=== PATIENT | female | born 1945 | race Caucasian/White ===

== ENCOUNTER 2016-12-11 16:46 | Emergency (ER) | payer MEDICARE, BC ==
--- NOTE | 2016-12-11 18:26 | ERNOTE ---
Lower Extremity HPI - Narrative Date of Service: 12/11/16 - General Lower Extremities Pain: ankle: right Time Seen by Provider: 12/11/16 17:15 Source: patient Exam Limitations: no limitations - Immun/Allergies/Home Medications Allergies/Adverse Reactions: Allergies Allergy/AdvReac Type Severity Reaction Status Date / Time ciprofloxacin [From Cipro] AdvReac Mild Nausea Verified 12/11/16 17:07 ciprofloxacin HCl AdvReac Mild Nausea Verified 12/11/16 17:07 [From Cipro] codeine AdvReac Mild GI PAIN Verified 12/11/16 17:07 Home Medications: HOME MEDICATIONS Amitriptyline HCl [Amitriptyline (Elavil)] 25 mg PO HS 06/15/14 [Last Taken Unknown] Aspirin 325 mg PO DAILY 06/15/14 [Last Taken Unknown] Atorvastatin Calcium [Lipitor] 40 mg PO DAILY 06/15/14 [Last Taken Unknown] Calcium Carbonate [Tums] 500 mg PO TID 06/15/14 [Last Taken Unknown] LORazepam [Ativan] 1 mg PO TID PRN 06/15/14 [Last Taken Unknown] Benazepril HCl [Lotensin] 20 mg PO BID 07/11/15 [Last Taken Unknown] Esomeprazole Magnesium [Nexium] 40 mg PO DAILY PRN 07/11/15 [Last Taken Unknown] Furosemide [Lasix] 40 mg PO DAILY 07/11/15 [Last Taken Unknown] Promethazine HCl 25 mg PO QID 07/11/15 [Last Taken Unknown] Hydrocodone/Acetaminophen [Tram 5-325 Tablet] 1 tab PO Q6H PRN #20 tab [Last Taken Unknown] - History of Present Illness Narrative: Patient presents to the ED for a right ankle injury. This happened just [employer]. Lateral right ankle pain and swelling. She stood up and caught her foot on the claw foot of furniture turning her ankle. She fell but denies other injuries. No head injury. No neck pain. No knee or hip pain. She cannot bear weight. Pain worse with movement. Denies other injuries. Occurred: just prior to arrival Location of Incident: home Method of Injury: Reports: twisted Reason for Fall: Reports: other - tripped Loss of Consciousness: Reports: no loss of consciousness Modifying Factors - (Improves): Reports: rest Modifying Factors - (Worsens): Reports: movement Associated Symptoms: Reports: unable to bear weight. Denies: weakness, sensory loss Other Injuries: Reports: none Prior Treament: Denies: recently seen Review of Systems - Review of Systems Constitutional: Absent: fever ENT: Present: other - no head injury Respiratory: Absent: shortness of breath Cardiology: Absent: chest pain Gastrointestinal/Abdominal: Absent: abdominal pain Musculoskeletal: Present: See HPI Skin: Present: other - no laceration Neurological: Present: other - denies acute focal N/T/W. - Patient's Past Medical History Patient History - Medical: GERD Patient History - Cardiac/Respiratory: Coronary Heart Disease, Hypertension, Hyperlipidemia, Myocardial Infarction Patient History - Cancer: Thyroid, Surgical Treatment Patient History - Surgical Procedures: Cancer Surgery, Cholecystectomy, Colonoscopy, Hysterectomy, Other Patient History - Other: None - Social History Living Situations: spouse Smoking Status: Never smoker Have you smoked in the past 12 months: No Alcohol Use: none Drug Use: other Physical Exam - Physical Exam General Appearance: Present: alert, no apparent distress Eye Exam: Normal inspection: bilateral, PERRL: bilateral Ears, Nose, Throat: Present: normal ENT inspection Neck: Present: other - no tenderness posterior cervical spine. Respiratory: Present: no respiratory distress, normal breath sounds Cardiovascular/Chest: Present: regular rate, rhythm, normal peripheral pulses Peripheral Pulses: N=norm/S=strong/W=weak/B=bound/A=absent: Dorsalis-pedis (R): Normal Gastrointestinal/Abdominal: Present: normal bowel sounds, nontender, soft Back Exam: Present: no vertebral tenderness Extremity Exam: Present: other - Right hip and right knee non-tender. Right ankle with lateral ankle swelling. Also tendenress here. Difficult exam d/t pain and swelling. No clear Achilles tendon injury. no foot tenderness. No gross instability but given pain cannot stress test the ankle joint. Strong DP pulse. No laceration. Neurological Exam: Present: other - sensation to LT intact. Wiggles toes. No clear acute focal motor deficits. Skin Exam: Present: other - no lacewration ED Progress - Vital Signs Patient's Vital Signs:: I have reviewed the patient's vital signs. Vital Signs: Vital Signs 12/11/16 17:04 Temperature 36.1 C L Pulse Rate 70 Respiratory 14 Rate Blood Pressure 122/88 O2 Sat by Pulse 98 Oximetry - X-Ray X-Ray #1 X-Ray: ankle X-ray Comments: I reviewed the formal radiology report. - Progress/Reassessment Chief Complaint: Ankle Injury/ Pain Progress Note-Subjective: 12/11/16 18:21 i discussed the case with Dr Alvarez. He recommends Stirrup and foot plate splint which by protocol is placed by nursing staff here. This was placed by nursing staff. Pt has crutches at home and I stressed no weight bearing. She is to see Dr Alvarez Thursday for an appointment. I discussed warning signs and reasons to return as well as the need for close f/u. Departure Clinical Impression: Fracture of distal end of fibula - Departure Disposition: Home self-care Condition: Stable Instructions: Fibular Ankle Fracture Treated With or Without Immobilization, Adult Additional Instructions: Call Dr Alvarez in the morning for an appointment time on Thursday. Leave splint in place until that time. Rest. Ice. Elevation. No weight bearing. Crutches. No driving with pain medications. Take a stool softener while taking pain medications. Return here for increased pain, numbness, tingling, weakness or if your condition worsens or changes in any way. Referrals: Conchis Coker MD [Primary Care Provider] - Prescriptions: Hydrocodone/Acetaminophen [Tram 5-325 Tablet] 1 tab PO Q6H PRN #20 tab PRN Reason: Pain
[2016-12-11 18:59] VITALS: BP 133/72
== END 2016-12-11 18:48 | disposition home or self-care (01) ==
LOC: ER 16:46
PROC: 2W3QX1Z Immobilization of Right Lower Leg using Splint (ICD-10-PCS; principal; 2016-12-11)
DX: S82.491A Other fracture of shaft of right fibula, initial encounter for closed fracture (principal); W22.03XA Walked into furniture, initial encounter; Y92.009 Unspecified place in unspecified non-institutional (private) residence as the place of occurrence of the external cause; Z85.850 Personal history of malignant neoplasm of thyroid

== ENCOUNTER 2017-07-27 09:31 | Emergency (ER) | payer MEDICARE, BC ==
[2017-07-27 09:55] LABS: Hematocrit 36.4 % (37.0-47.0); Hemoglobin 12.2 gm/dL (12.5-16.0); Mean Corpuscular Hemoglobin 32.2 pg (27-31); Mean Corpuscular Hgb Conc 33.5 g/dl (32-36); Mean Platelet Volume 11.3 fl (6.0-9.5); Neutrophil # 2.3 K/mm3 (1.3-6.0); Platelet Count 146 K/mm3 (150-450); Red Blood Count 3.79 M/mm3 (4.2-5.4); Red Cell Distribution Width 13.5 % (11.5-14.0); White Blood Count 4.7 K/mm3 (4.0-10.5)
[2017-07-27 10:05] LABS: Prothrombin Time (Patient) 10.6 Seconds (9.4-11.4)
[2017-07-27] MEDS ORDERED: MAG HYDROX/ALUMINUM HYD/SIMETH 30 ML UDC PO ONE (10:06)
[2017-07-27] MEDS ORDERED: BELLADONNA ALKALOIDS/PHENOBARB 60 ML BTL PO ONE (10:06)
[2017-07-27 10:12] LABS: INR 1.02 INR (0.90-1.10); Partial Thrombolplastin Time 24.7 Seconds (24-32); Troponin I Less than 0.017 ng/ml (0.00-0.10)
--- NOTE | 2017-07-27 10:12 | ERNOTE ---
Chest Pain/Cardiac HPI Chief Complaint: Chest Pain Time Seen by Provider: 07/27/17 10:04 Source: patient, family Exam Limitations: no limitations Immunizations: IMMUNIZATION HX Immunizations Up to Date Yes History of Influenza Vaccine Yes Hx Pneumococcal Vaccination No Allergies/Adverse Reactions: Allergies ciprofloxacin [From Cipro] Adverse Reaction (Mild, Verified 07/27/17 10:05) Nausea ciprofloxacin HCl [From Cipro] Adverse Reaction (Mild, Verified 07/27/17 10:05) Nausea codeine Adverse Reaction (Mild, Verified 07/27/17 10:05) GI PAIN Home Medications: HOME MEDICATIONS Amitriptyline HCl [Amitriptyline (Elavil)] 25 mg PO HS 06/15/14 [Last Taken Unknown] Atorvastatin Calcium [Lipitor] 40 mg PO DAILY 06/15/14 [Last Taken Unknown] LORazepam [Ativan] 1 mg PO TID PRN 06/15/14 [Last Taken Unknown] Benazepril HCl [Lotensin] 20 mg PO BID 07/11/15 [Last Taken Unknown] Esomeprazole Magnesium [Nexium] 40 mg PO DAILY PRN 07/11/15 [Last Taken Unknown] Furosemide [Lasix] 40 mg PO DAILY 07/11/15 [Last Taken Unknown] Aspirin [Ecotrin] 325 mg PO DAILY 07/27/17 [Last Taken 07/26/17] Carvedilol [Coreg] 6.25 mg PO BID 07/27/17 [Last Taken Unknown] Omeprazole [Prilosec] 20 mg PO DAILY #30 cap 07/27/17 [Last Taken Unknown] Omeprazole [Prilosec] 20 mg PO DAILY #30 cap 07/27/17 [Last Taken Unknown] Narrative: Patient has a three-year history of epigastric abdominal pain. She has undergone numerous stress test all of which are negative. Patient appears to have a vague EGD scheduled for sometime in the future however she is having difficulty getting through to the physician's in [place]. She states she would prefer to have the EGD done here him and would appreciate some assistance in getting that done. Timing: intermittent Severity/Quality: mild, burning Location: epigastric Chest Pain Radiation: no radiation Activities at Onset: none Modifying Factors - Improves: Present: antacids Associated Symptoms: Present: denies symptoms Prior Chest Pain/Cardiac Workup: Reports: stress test Prior Treatment: Reports: recently seen, treated by physician Review of Systems - Review of Systems Constitutional: Present: See HPI EYE: Present: no symptoms reported ENT: Present: no symptoms reported Respiratory: Present: no symptoms reported Cardiology: Present: no symptoms reported Gastrointestinal/Abdominal: Present: See HPI, abdominal pain - chronic epigastric Genitourinary: Present: no symptoms reported Musculoskeletal: Present: no symptoms reported Skin: Present: no symptoms reported Neurological: Present: no symptoms reported Endocrine: Present: no symptoms reported Hematologic/Lymphatic: Present: no symptoms reported Psych: Present: no symptoms reported - Patient's Past Medical History Patient History - Medical: GERD Patient History - Cardiac/Respiratory: Coronary Heart Disease, Hypertension, Hyperlipidemia, Myocardial Infarction Patient History - Cancer: Thyroid, Surgical Treatment Patient History - Surgical Procedures: Cancer Surgery, Cholecystectomy, Colonoscopy, Hysterectomy, Other Patient History - Other: None - Family History Father Family History - Medical: Family History - Cardiac/Respiratory: Myocardial Infarction Family History - Cancer: Lung Mother Family History - Medical: - Social History Living Situations: spouse Abuse History: No History of abuse Psych History: Hx of Anxiety, Hx of Depression Smoking Status: Current every day smoker Have you smoked in the past 12 months: Yes Do you dip or chew tobacco: No Alcohol Use: none Drug Use: other - Immunizations Immunizations Up to Date: Yes Hx Pneumococcal Vaccination: No History of Influenza Vaccine: Yes Physical Exam - Physical Exam General Appearance: Present: wd/wn, alert, mild distress Head Exam: Present: normal inspection Eye Exam: Normal inspection: bilateral, PERRL: bilateral Ears, Nose, Throat: Present: normal ENT inspection, H, normal pharynx Neck: Present: normal inspection, nontender Respiratory: Present: no respiratory distress, normal breath sounds, no accessory muscle use, chest nontender, lungs clear Cardiovascular/Chest: Present: regular rate, rhythm, no murmur, normal peripheral pulses Gastrointestinal/Abdominal: Present: normal bowel sounds, nondistended, soft, no organomegaly, tenderness - the epigastric region Rectal Exam: Present: deferred Back Exam: Present: normal inspection, normal range of motion Extremity Exam: Present: normal inspection, non-tender, no edema, normal range of motion Neurological Exam: Present: alert, oriented, normal mood/affect Skin Exam: Present: normal color, warm/dry Lymphatic Exam: Present: no adenopathy ED Progress - Results and Orders Patient's Lab Results:: I have reviewed the patient's lab results. - Vital Signs Patient's Vital Signs:: I have reviewed the patient's vital signs. Vital Signs: Vital Signs 07/27/17 07/27/17 09:45 10:02 Temperature 36.4 C L 36.4 C L Pulse Rate 69 81 Respiratory 14 20 Rate Blood Pressure 114/61 161/70 O2 Sat by Pulse 99 99 Oximetry - EKG EKG: NSR, premature ventricular contraction EKG read: Interp. by me - X-Ray X-Ray #1 X-Ray: chest Interpretation: Reviewed by me - Progress/Reassessment Chief Complaint: Chest Pain Progress:: Improved Plan - Plan Plan: Patient had complete resolution of her epigastric pain after GI cocktail. I discussed the case with Dr. Causey, her local surgeons, he is agreed to do the EGD here and the patient is grateful for not having to drive to [place] to have the test. Patient will be referred to Dr. Causey and ultimately referred back to her family physician Dr. Coker. This episode of pain as been ongoing for 24 hours with an unremarkable EKG and a negative troponin and at this juncture I do not anticipate that this is acute coronary syndrome. Departure - Departure Clinical Impression: GERD (gastroesophageal reflux disease) Qualifiers: Esophagitis presence: with esophagitis Qualified Code(s): K21.0 - Gastro- esophageal reflux disease with esophagitis Disposition: Home self-care Condition: Good Instructions: Indigestion, [id number] Additional Instructions: Call Dr. Causey for appointment Referrals: Conchis Coker MD [Primary Care Provider] - Alexx Causey MD [Associate] - Prescriptions: Omeprazole [Prilosec] 20 mg PO DAILY #30 cap
[2017-07-27 10:15] LABS: ALT 17 U/L (19-67); AST 16 U/L (0-48); Albumin * 3.6 gm/dl (3.4-5.0); Alkaline Phosphatase * 86 U/L (50-170); Anion Gap 11.4 mmol/L (6.8-13.8); BUN/Creatinine Ratio 22.8 (9.0-21.6); Bilirubin, Total 0.7 mg/dL (0.0-1.1); Blood Urea Nitrogen 13 mg/dL (3-23); Ca. Corrected For Albumin 9.2 mg/dL (8.4-10.2); Calcium * 9.2 mg/dL (7.9-10.9); Carbon Dioxide 28.4 mmol/L (24-32.6); Chloride 104 mmol/L (97-106); Glucose * 117 mg/dL (70-110); Potassium 3.8 mmol/L (3.4-4.6); Sodium 140 mmol/L (132-142)
[2017-07-27] MEDS: LIDOCAINE HCL 20 ML UDC PO ONE ×2 (10:17→10:18)
[2017-07-27 10:50] VITALS: BP 113/58
== END 2017-07-27 10:54 | disposition home or self-care (01) ==
LOC: ER 09:31
DX: K21.0 Gastro-esophageal reflux disease with esophagitis (principal); I10 Essential (primary) hypertension; E78.5 Hyperlipidemia, unspecified; I50.9 Heart failure, unspecified; I25.2 Old myocardial infarction; Z85.850 Personal history of malignant neoplasm of thyroid; F17.200 Nicotine dependence, unspecified, uncomplicated

== ENCOUNTER 2017-08-04 10:28 | Day surgery (SDC) | payer MEDICARE, BC ==
[~2017-08-04 10:28] MED LIST: RINGER'S SOLUTION,LACTATED 1,000 ML IV PRN
[2017-08-04] MEDS ORDERED: RINGER'S SOLUTION,LACTATED 1,000 ML IV ONE (11:45)
--- NOTE | 2017-08-04 12:06 | OR ---
Operative Report - Dictated Report Narrative: Date: 08/04/2017 Preop dx: GERD Postop dx: Bile reflux. Small hiatal hernia. Procedure: Esophagogastroduodenoscopy with biopsy x 2 Surgeon: Alexx Causey MD Anesthesia: MAC per FOAM RUBBER CURER EBL: minimal Specimen: CLOtest, antral biopsy Description: After informed consent a bite block was inserted and IV sedation was administered per FOAM RUBBER CURER. Flexible video endoscope was inserted through the bite block, through the posterior pharynx and into the esophagus under direct vision. The scope was then advanced through the esophagus, stomach, and into the duodenum. The duodenum was grossly normal without ulceration. The scope was withdrawn into the stomach. There was no gastritis or ulcers noted. The body of the stomach was inspected and was normal. A biopsy of the antrum for CLOtest and anatomic pathology were obtained. Retroflexion of the scope within the stomach revealed a small hiatal hernia. Endoscope was withdrawn into the distal esophagus. No abnormalities were seen. Remainder of the esophagus was unremarkable. The patient tolerated the procedure well and was discharged from the endoscopy suite in stable condition. RECOMMENDATIONS: Continue acid suppression. Repeat EGD will be PRN.
[2017-08-04 13:33] VITALS: BP 136/71
== END 2017-08-04 10:29 | disposition home or self-care (01) ==
LOC: AMB 10:28
PROVIDERS: ATTEND Specialist
PROC: 0DB68ZX Excision of Stomach, Via Natural or Artificial Opening Endoscopic, Diagnostic (ICD-10-PCS; principal; 2017-08-04 11:50)
DX: K21.9 Gastro-esophageal reflux disease without esophagitis (principal); K29.70 Gastritis, unspecified, without bleeding; K44.9 Diaphragmatic hernia without obstruction or gangrene; I10 Essential (primary) hypertension; E78.5 Hyperlipidemia, unspecified; R73.01 Impaired fasting glucose; I25.10 Atherosclerotic heart disease of native coronary artery without angina pectoris; F41.9 Anxiety disorder, unspecified; F32.9 Major depressive disorder, single episode, unspecified; F17.210 Nicotine dependence, cigarettes, uncomplicated; Z68.31 Body mass index [BMI] 31.0-31.9, adult

== ENCOUNTER 2017-09-21 08:11 | Emergency (ER) | payer MEDICARE, BC ==
[2017-09-21 08:48] LABS: Hematocrit 39.7 % (37.0-47.0); Mean Cell Volume 97.5 fl (78-100); Mean Corpuscular Hemoglobin 31.9 pg (27-31); Mean Corpuscular Hgb Conc 32.7 g/dl (32-36); Mean Platelet Volume 11.1 fl (6.0-9.5); Neutrophil # 7.6 K/mm3 (1.3-6.0); Neutrophil % 70.8 % (42-75.0); Platelet Count 167 K/mm3 (150-450); Red Blood Count 4.07 M/mm3 (4.2-5.4); Red Cell Distribution Width 13.3 % (11.5-14.0); White Blood Count 10.7 K/mm3 (4.0-10.5)
[2017-09-21 08:52] LABS: Urine Bilirubin Negative (NEGATIVE); Urine Blood 50 /ul (NEGATIVE); Urine Ketone Negative (NEGATIVE); Urine Nitrite Negative (NEGATIVE); Urine Protein Negative (NEGATIVE); Urine Specific Gravity 1.025 SP.GR. (1.005-1.010); Urine Urobilinogen Normal (NORMAL)
--- NOTE | 2017-09-21 08:58 | ERNOTE ---
Dizziness ER Record Presenting Symptoms: dizziness Time Seen by Provider: 09/21/17 08:23 Source: patient Exam Limitations: no limitations Immunizations: IMMUNIZATION HX Immunizations Up to Date Yes History of Influenza Vaccine Yes Hx Pneumococcal Vaccination Yes Allergies/Adverse Reactions: Allergies Allergy/AdvReac Type Severity Reaction Status Date / Time ciprofloxacin HCl AdvReac Mild Nausea Verified 09/21/17 08:17 [From Cipro] codeine AdvReac Mild GI PAIN Verified 09/21/17 08:17 Home Medications: HOME MEDICATIONS Amitriptyline HCl [Amitriptyline (Elavil)] 25 mg PO HS 06/15/14 [Last Taken Unknown] Atorvastatin Calcium [Lipitor] 40 mg PO DAILY 06/15/14 [Last Taken Unknown] LORazepam [Ativan] 1 mg PO TID PRN 06/15/14 [Last Taken 08/04/17 06:45] Benazepril HCl [Lotensin] 20 mg PO BID 07/11/15 [Last Taken 08/04/17 06:45] Esomeprazole Magnesium [Nexium] 40 mg PO DAILY PRN 07/11/15 [Last Taken Unknown] Furosemide [Lasix] 40 mg PO Q7D 07/11/15 [Last Taken Unknown] Aspirin [Ecotrin] 325 mg PO DAILY 07/27/17 [Last Taken 07/26/17] Carvedilol [Coreg] 6.25 mg PO BID 07/27/17 [Last Taken Unknown] Calcium Carbonate [Tums] 500 mg PO TID 07/28/17 [Last Taken Unknown] Promethazine HCl [Phenergan (Promethazine)] 25 mg PO Q4H PRN 07/28/17 [Last Taken Unknown] - History of Present Illness Narrative: Patient has had different changing symptoms for three days, she is rather vague in trying to describe what is going on. The last couple of days she has had intermittent headaches and 'buzzing' in her ears (left and right). She currently doesn't have a headache, buzzing only in the left ear, no hearing deficit. Since this morning she has been also feeling dizzy, not a spinning sensation. She is afraid of fainting but can't say if that is what she is feeling currently. She is nauseate but has been able to eat toast and take her meds this morning, no new deficit, no recent injury. Timing and Duration: gradual onset Associated Symptoms: Present: ringing/roaring in ear, nausea, headache. Absent : hearing loss, ear pain, vomiting, weakness, numbness, sweating, light headedness Sense of movement: Present: vague. Absent: spinning, falling Decreased ability to stand/walk:: Absent: weak, difficult, cannot walk Usually:: Present: walks w/o assistance Modifying Factors - (Improves): Reports: nothing Modifying Factors - (Worsens): Reports: nothing Prior Treament: Reports: similar symptoms before - when 'having bad nerves' Review of Systems - Review of Systems Constitutional: Absent: recent illness, fever EYE: Present: blurred vision - chronic left eye. Absent: vision changes ENT: Absent: nose congestion, sore throat Respiratory: Absent: shortness of breath Cardiology: Absent: chest pain, palpitations Gastrointestinal/Abdominal: Present: nausea. Absent: vomiting, diarrhea, abdominal pain Genitourinary: Present: no symptoms reported Musculoskeletal: Present: neck pain - left lateral muscle spasms. Absent: back pain Skin: Present: no symptoms reported Neurological: Present: See HPI, headache, dizziness/light-headedness. Absent: weakness, numbness Psych: Present: anxiety - Patient's Past Medical History Patient History - Medical: Anxiety, Depression, GERD, Other Patient History - Cardiac/Respiratory: Hypertension, Hyperlipidemia, Myocardial Infarction, Peripheral Vascular Disease Patient History - Cancer: Thyroid, Surgical Treatment Patient History - Surgical Procedures: Back Surgery, Cholecystectomy, Colonoscopy, Hysterectomy, Hernia Repair Patient History - Other: None - Family History Father Family History - Medical: , No pertinent hx Family History - Cardiac/Respiratory: Myocardial Infarction Family History - Cancer: Lung Mother Family History - Medical: , Renal Disease Family History - Cardiac/Respiratory: No pertinent hx Family History - Cancer: No pertinent family hx Brother Family History - Medical: No pertinent hx Family History - Cardiac/Respiratory: Coronary Heart Disease, Hypertension Family History - Cancer: No pertinent family hx - Social History Abuse History: No History of abuse Psych History: Hx of Anxiety, Hx of Depression Smoking Status: Current every day smoker Have you smoked in the past 12 months: Yes - Immunizations Immunizations Up to Date: Yes Hx Pneumococcal Vaccination: Yes History of Influenza Vaccine: Yes Physical Exam - Physical Exam General Appearance: Present: wd/wn, alert, no apparent distress, anxious Head Exam: Present: normal inspection, no evidence of injury Eye Exam: Normal inspection: right, PERRL: right, EOMI: bilateral, Other: left - chronic changes irregular dilated pupil Ears, Nose, Throat: Present: normal ENT inspection, normal pharynx Neck: Present: normal inspection, supple, full range of motion, tender lateral - left slight muscle spasms Respiratory: Present: no respiratory distress, normal breath sounds, no accessory muscle use, lungs clear Cardiovascular/Chest: Present: regular rate, rhythm, no murmur, normal peripheral pulses Gastrointestinal/Abdominal: Present: nontender, nondistended, soft Extremity Exam: Present: no edema Neurological Exam: Present: alert, oriented, normal mood/affect, no motor/ sensory deficits, conservation specialist II-XII nml as tested, normal cerebellar test - walking to bathroom steady gait Skin Exam: Present: normal color, warm/dry ED Progress - Results and Orders Patient's Lab Results:: I have reviewed the patient's lab results. - Vital Signs Patient's Vital Signs:: I have reviewed the patient's vital signs. Vital Signs: Vital Signs 09/21/17 08:14 Temperature 36.3 C L Pulse Rate 77 Respiratory 14 Rate Blood Pressure 139/71 O2 Sat by Pulse 99 Oximetry - EKG EKG: NSR, other - PVCs EKG read: Interp. 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
[2017-09-21 09:01] LABS: Anion Gap 11.2 mmol/L (6.8-13.8); BUN/Creatinine Ratio 22.7 (9.0-21.6); Bilirubin, Total 1.1 mg/dL (0.0-1.1); Ca. Corrected For Albumin 9.1 mg/dL (8.4-10.2); Calcium * 9.4 mg/dL (7.9-10.9); Carbon Dioxide 29.6 mmol/L (24-32.6); Potassium 3.8 mmol/L (3.4-4.6); Total Protein 7.4 gm/dL (6.2-8.2)
[2017-09-21 09:04] LABS: Urine Appearance Clear; Urine Bacteria None Seen; Urine Color Yellow; Urine Mucus Few - 1+; Urine WBC None Seen /hpf (0-5)
[2017-09-21 09:55] VITALS: BP 138/69
== END 2017-09-21 09:46 | disposition home or self-care (01) ==
LOC: ER 08:11
DX: F41.9 Anxiety disorder, unspecified (principal); Z85.850 Personal history of malignant neoplasm of thyroid; I25.2 Old myocardial infarction; F17.200 Nicotine dependence, unspecified, uncomplicated; I10 Essential (primary) hypertension; E78.5 Hyperlipidemia, unspecified; K21.9 Gastro-esophageal reflux disease without esophagitis

== ENCOUNTER 2018-10-26 09:02 | Inpatient (IN) | payer BC, MEDICARE ==
[2018-10-26 09:50] LABS: Hemoglobin 11.1 gm/dL (12.5-16.0); Mean Cell Volume 96.3 fl (78-100); Mean Corpuscular Hemoglobin 31.4 pg (27-31); Mean Corpuscular Hgb Conc 32.6 g/dl (32-36); Mean Platelet Volume 10.9 fl (8-12.5); Neutrophil # 11.9 K/mm3 (1.3-6.0); Neutrophil % 79.9 % (42-75.0); Platelet Count 165 K/mm3 (150-450); Red Blood Count 3.53 M/mm3 (4.2-5.4); Red Cell Distribution Width 13.4 % (11.5-14.0); White Blood Count 14.9 K/mm3 (4.0-10.5)
[2018-10-26 09:59] LABS: Prothrombin Time (Patient) 10.7 Seconds (9.0-11.0)
[2018-10-26 10:00] LABS: Urine Bilirubin 1 mg/dl (NEGATIVE); Urine Blood 250 /ul (NEGATIVE); Urine Ketone 15 mg/dL (NEGATIVE); Urine Nitrite Negative (NEGATIVE); Urine Protein Negative (NEGATIVE); Urine Specific Gravity 1.025 SP.GR. (1.005-1.010); Urine Urobilinogen Normal (NORMAL)
[2018-10-26 10:05] LABS: INR 1.07 INR (0.90-1.10); Partial Thrombolplastin Time 26.6 Seconds (24-32)
[2018-10-26 10:09] LABS: Troponin I Less than 0.017 ng/mL (0.00-0.10)
[2018-10-26 10:10] LABS: ALT 220 U/L (19-67); AST 94 U/L (0-48); Alkaline Phosphatase * 179 U/L (50-170); Anion Gap 14.4 mmol/L (6.8-13.8); BNP * 1645 pg/mL (5-550); BUN/Creatinine Ratio 18.6 (9.0-21.6); Bilirubin, Total 1.2 mg/dL (0.0-1.1); Blood Urea Nitrogen 11 mg/dL (3-23); Ca. Corrected For Albumin 9.3 mg/dL (8.4-10.2); Calcium * 8.8 mg/dL (7.9-10.9); Carbon Dioxide 26.9 mmol/L (24-32.6); Chloride 101 mmol/L (97-106); Glucose * 109 mg/dL (70-110); Potassium 3.3 mmol/L (3.4-4.6); Sodium 139 mmol/L (132-142); Total Protein 6.6 gm/dL (6.2-8.2)
[2018-10-26 10:10] LABS: Urine Appearance Slightly Cloudy (CLEAR); Urine Bacteria TRACE; Urine Color Dark Yellow; Urine RBC None Seen /hpf (0-5); Urine WBC None Seen /hpf (0-5)
[2018-10-26] MEDS ORDERED: NORMAL SALINE 1,000 ML IV ONE (10:18)
--- NOTE | 2018-10-26 10:29 | ERNOTE ---
Date of Service: 10/26/18 Time Seen by Provider: 10/26/18 10:12 Stated Complaint: uti Presenting Symptoms:: cough, other - lower abdominal pressure Source: patient, family, RN notes reviewed, past records Exam Limitations: no limitations Immunizations: IMMUNIZATION HX Immunizations Up to Date Yes History of Influenza Vaccine Yes Hx Pneumococcal Vaccination No Allergies/Adverse Reactions: Allergies ciprofloxacin HCl [From Cipro] Adverse Reaction (Mild, Verified 10/26/18 09:19) Nausea codeine Adverse Reaction (Mild, Verified 10/26/18 09:19) GI PAIN Home Medications: HOME MEDICATIONS Amitriptyline HCl [Amitriptyline (Elavil)] 25 mg PO HS 06/15/14 [Last Taken Unknown] Atorvastatin Calcium [Lipitor] 40 mg PO DAILY 06/15/14 [Last Taken Unknown] Benazepril HCl [Lotensin] 20 mg PO BID 07/11/15 [Last Taken 08/04/17 06:45] Esomeprazole Magnesium [Nexium] 40 mg PO DAILY PRN 07/11/15 [Last Taken Unknown] Furosemide [Lasix] 40 mg PO Q7D 07/11/15 [Last Taken Unknown] Carvedilol [Coreg] 6.25 mg PO BID 07/27/17 [Last Taken 10/25/18] Calcium Carbonate [Tums] 500 mg PO TID 07/28/17 [Last Taken Unknown] prochlorperazine maleate 10 mg tablet 10 mg PO Q6H PRN #30 tab MDD do not exceed 40mg/24hrs 05/18/18 [Last Taken 10/25/18] aspirin 81 mg tablet,delayed release 81 mg PO DAILY 07/06/18 [Last Taken 10/26/18] lorazepam 1 mg tablet 1 mg PO TID PRN #90 tab 10/19/18 [Last Taken Unknown] amoxicillin 875 mg-potassium clavulanate 125 mg tablet 1 tab PO BID 10 Days #20 tab 10/23/18 [Last Taken Unknown] benzonatate 200 mg capsule 200 mg PO TID PRN #15 cap 10/23/18 [Last Taken Unknown] prednisone 20 mg tablet 40 mg PO DAILY 5 Days #10 tab 10/23/18 [Last Taken Unknown] Nitrofurantoin Macrocrystal [Nitrofurantoin] 100 mg PO QID 10/26/18 [Last Taken 10/25/18] - History of Present Ilness Narrative: Nyla is a 73 year old female who presents to the ED from home with multiple complaints. She initially presented for pelvic pressure. She was seen in urology a week ago. A cath UA was done and she was started on Macrobid. She had also been having a cough which has been getting gradually worse. She was seen for this in the walk-in clinic 3 days ago. She was prescribed Augmentin and pred nisone. She only took one dose of prednisone because she did not like the way it made her feel. She has been taking the Augmentin despite it causing nausea and upset stomach. She also reports having some chest pain last week. Her oxygen saturation was 91% on room air during triage. She became more dyspneic while being taken to a room and dropped to 87%. She is currently 97% with oxygen at 2 liters via nasal canula. Timing: getting worse Frequency/Possible Cause: Reports: unknown cause Modifying Factors - Improves: Reports: nothing Modifying Factors - Worsens: Reports: activity. Denies: lying down Associated Symptoms: Reports: chest pain/soreness, cough, shortness of breath, earache, headache, muscle aches, fever/chills. Denies: wheezing, facial pain, nasal congestion, nasal drainage, sore throat Prior Treatment: Reports: recently seen, treated by physician, currently on antibiotics. Denies: recently hospitalized Review of Systems - Review of Systems Constitutional: Present: See HPI, recent illness, fatigue, malaise EYE: Absent: eye pain, eye discharge ENT: Present: ear pain. Absent: ear discharge, nose congestion, nasal drainage, sore throat Respiratory: Present: shortness of breath, cough. Absent: orthopnea, wheezing Cardiology: Present: chest pain. Absent: syncope, edema Gastrointestinal/Abdominal: Present: nausea, diarrhea, constipation. Absent: vomiting Genitourinary: Absent: dysuria, hematuria Musculoskeletal: Present: muscle pain. Absent: joint pain Skin: Absent: rash, lesions Neurological: Present: headache. Absent: dizziness/light-headedness Endocrine: Present: no symptoms reported Hematologic/Lymphatic: Absent: easy bruising, easy bleeding Psych: Present: anxiety Medical History (Last Reviewed 10/26/18 @ 11:25 by Marely Pinedo NP) Has received vaccination for influenza (Acute) Onset Date: Unknown Ankle fracture (Inactive) Onset Date: Unknown CAD (coronary artery disease) (Chronic) Onset Date: Unknown Cystocele with rectocele (Chronic) Onset Date: Unknown Depression (Chronic) Onset Date: Unknown Deviated nasal septum (Inactive) Onset Date: Unknown Diverticulosis (Chronic) Onset Date: 05/2005 Hyperlipidemia (Chronic) Onset Date: 1998 Hypertension (Chronic) Onset Date: Unknown Myocardial infarction (Inactive) Onset Date: 1989 anterior wall LA and PTCA and LAD Osteopenia (Chronic) Onset Date: Unknown Cancer of thyroid gland (Inactive) Onset Date: Unknown Thyroid cancer (Chronic) papillary s/p hemithyroidectomy Cardiomyopathy (Chronic) Sciatica of right side (Inactive) Onset Date: ~2003 Fracture of distal end of fibula (Inactive) Onset Date: Unknown GERD (gastroesophageal reflux disease) (Chronic) Onset Date: 1998 Anxiety (Chronic) Onset Date: Unknown UTI (urinary tract infection) (Acute) Sensorineural hearing loss Onset Date: Unknown Surgical History: Surgical History (Last Reviewed 10/26/18 @ 11:25 by Marely Pinedo NP) bladder prolapse surgery (Inactive) Onset Date: 03/2006 H/O colonoscopy (Inactive) Onset Date: 07/17/15 Tinguely- tubular adenoma, hyperplastic polyp. Recheck in 5 years. H/O cystoscopy (Inactive) Onset Date: 06/16/14 hayes daniels w/ right retrograde pyelogramEGD w H/O esophagogastroduodenoscopy (Inactive) Onset Date: 08/04/17 Tommeraasen- Clotest negative. Minimal benign reactive gastropathy/chemical gastritis facetectomy (Inactive) Onset Date: 12/21/13 Foster L4 L5 H/O cardiac catheterization (Inactive) Onset Date: 2013 S/P hemilaminotomy (Inactive) Onset Date: 12/21/13 H/O inguinal hernia repair (Inactive) Onset Date: 07/15/12 Hx laparoscopic cholecystectomy (Inactive) Onset Date: 10/17/08 History of total abdominal hysterectomy and bilateral salpingo-oophorectomy (Inactive) Onset Date: 03/2006 H/O tooth extraction (Inactive) Onset Date: 07/2009 H/O thyroidectomy (Inactive) Onset Date: 2009 Family History: Family History (Last Reviewed 10/26/18 @ 11:25 by Marely Pinedo NP) Brother Heart disease Hypertension Father Myocardial infarction Cancer Mother Cryoglobulinemia Social History: Preferred Language Lebanese Smoking Status Current every day smoker Have you smoked in the past 12 Yes months Do you dip or chew tobacco No Abuse History No History of abuse Psych History Hx of Anxiety,Hx of Depression Alcohol Use none Drug Use none (Last Updated 10/23/18 @ 10:45 by Marely Tan DNP) No Social History Section defined Physical Exam - Physical Exam General Appearance: Present: wd/wn, alert, other - In no acute distress but appears to not feel well Head Exam: Present: normal inspection Eye Exam: Normal inspection: bilateral Ears, Nose, Throat: Present: normal ENT inspection, normal pharynx Neck: Present: normal inspection, nontender, supple Respiratory: Present: no respiratory distress, no accessory muscle use, crackles - bilateral lower lung feilds, left greater than right Cardiovascular/Chest: Present: regular rate, rhythm, no murmur, normal peripheral pulses Back Exam: Present: normal inspection, normal range of motion Extremity Exam: Present: normal inspection, no edema Neurological Exam: Present: alert, oriented, normal mood/affect, no motor/sensory deficits Skin Exam: Present: normal color, warm/dry Progress - Results and Orders Patient's Lab Results:: I have reviewed the patient's lab results. - Vital Signs Patient's Vital Signs:: I have reviewed the patient's vital signs. Vital Signs: Vital Signs 10/26/18 09:12 10/26/18 09:53 Temperature 36.1 C Pulse Rate 72 76 Respiratory Rate 22 H 22 H Blood Pressure 149/56 153/69 H O2 Sat by Pulse Oximetry 91 L 95 - EKG EKG: NSR, premature ventricular contraction, unchanged from - 09/21/17 - X-Ray X-Ray #1 X-Ray: chest Interpretation: Reviewed by me X-ray Comments: Technique: Chest PA Lateral * Findings: Cardiac silhouette is unchanged. Again there is pulmonary vascular congestion with interstitial edema. Alternatively diffuse pneumonitis can appear similar. No pneumothorax. No effusion. IMPRESSION: 1. Central vascular congestion and diffuse interstitial prominence which may be edema versus diffuse pneumonitis. Electronically signed by Jamin Mock M.D.. X-Ray #2 X-Ray: abdomen Interpretation: Reviewed by me X-ray Comments: TECHNIQUE: Abdomen Flat W/ Upright * FINDINGS: No free air. Nonobstructed nonspecific bowel gas pattern. Surgical clips in the right upper quadrant. No abnormal calcifications. Osseous structures are intact. IMPRESSION: 1. No acute plain film pathology detected. Electronically signed by Jamin Mock M.D.. - Progress/Reassessment Chief Complaint: Genitourinary Problem Progress Note-Subjective: 10/26/18 11:27 The patient's respiratory status has worsened despite outpatient treatment. WBC is elevated at 14,900 with a normal lactic acid. BNP is stable and troponin is negative. UA shows that her previous UTI has resolved. Her initial hypoxia has improved with oxygen at 2 liters per nasal canula. Her baseline oxygen saturation appears to be in the mid 90's according to her past visits. Her chest xray shows what is likely a pneumonia. An abdominal film was obtained due to her complaints of pelvic pressure. This was unremarkable. Blood cultures are pending. Her PCP is Dr. Coker. He was contacted and the patient will be admitted. She will be started on Rocephin and Zithromax, as well as SoluMedrol. Dr. Coker also requested that an US of the gallbladder be ordered due to the patient's elevated LFT's. Departure Clinical Impression: Chronic obstructive pulmonary disease with acute lower respiratory infection, Hypoxemia, Failure of outpatient treatment Pneumonia Qualifiers: Pneumonia type: due to unspecified organism Laterality: unspecified laterality Lung location: unspecified part of lung Qualified Code(s): J18.9 - Pneumonia, unspecified organism - Departure Disposition: Still a patient Condition: Fair Referrals: Conchis Coker MD [Primary Care Provider] -
[2018-10-26] MEDS ORDERED: AZITHROMYCIN 250 MG TABLET PO ONE (11:32)
[2018-10-26] MEDS ORDERED: METHYLPREDNISOLONE SOD SUCC/PF 40 MG/ML VIAL IV ONE (11:33)
[2018-10-26] MEDS ORDERED: cefTRIAXone SODIUM 1,000 MG/100 ML BAG IV ONE (11:33)
[2018-10-26] MEDS ORDERED: METHYLPREDNISOLONE SOD SUCC/PF 40 MG/ML VIAL IV SCH (12:15)
[2018-10-26] MEDS: NORMAL SALINE 1,000 ML IV PRN ×2 (13:50→22:57)
--- NOTE | 2018-10-26 16:46 | HP ---
Chief Complaint - Chief Complaint Date of Service: 10/26/18 Time of Service: 16:25 Chief Complaint: cough/URI symptoms History of Present Illness: Nyla Mendoza, is a 73-year-old white female, with previous medical history of hypertension, hyperlipidemia, hypothyroid to see him, coronary artery disease, who was admitted on 10/26/2018 because of coughing and weakness. 1-1/2 weeks prior to admission the patient started having cough mostly nonproductive. 4 days prior to admission she went to our walk-in clinic and was diagnosed with an ear infection as well as a sinus infection. She was started on Augmentin. Today her cough started getting worse and she was getting more weak and so she went or emergency room. Her oxygen saturation in the emergency room was 91% on room air and was she was being transferred her saturation dropped down to 87% and she became more dyspneic. She was started on 2 L of nasal cannula which brought her oxygen saturation to 97%. A chest x-ray was done which showed showed central vascular congestion likely edema versus pneumonitis. Her white blood cell count was elevated at 14.9. She denied any chest pains, orthopnea, edema, fever, but admitted to chills. She did have urinary tract infection 2 we eks ago and was treated with Macrobid. One of her complaints today emergency room was that she was still having pelvic pressure and an abdominal x-ray was done which showed no acute intra-abdominal findings. She was then admitted for pneumonia. Medical History (Last Reviewed 10/26/18 @ 13:08 by Justine Barkley RN) Has received vaccination for influenza (Acute) Onset Date: Unknown Ankle fracture (Inactive) Onset Date: Unknown CAD (coronary artery disease) (Chronic) Onset Date: Unknown Cystocele with rectocele (Chronic) Onset Date: Unknown Depression (Chronic) Onset Date: Unknown Deviated nasal septum (Inactive) Onset Date: Unknown Diverticulosis (Chronic) Onset Date: 05/2005 Hyperlipidemia (Chronic) Onset Date: 1998 Hypertension (Chronic) Onset Date: Unknown Myocardial infarction (Inactive) Onset Date: 1989 anterior wall OR and PTCA and LAD Osteopenia (Chronic) Onset Date: Unknown Cancer of thyroid gland (Inactive) Onset Date: Unknown Thyroid cancer (Chronic) papillary s/p hemithyroidectomy Cardiomyopathy (Chronic) Sciatica of right side (Inactive) Onset Date: ~2003 Fracture of distal end of fibula (Inactive) Onset Date: Unknown GERD (gastroesophageal reflux disease) (Chronic) Onset Date: 1998 Anxiety (Chronic) Onset Date: Unknown UTI (urinary tract infection) (Acute) Sensorineural hearing loss Onset Date: Unknown Surgical History: Surgical History (Last Reviewed 10/26/18 @ 13:08 by Justine Barkley RN) bladder prolapse surgery (Inactive) Onset Date: 03/2006 H/O colonoscopy (Inactive) Onset Date: 07/17/15 Tinguely- tubular adenoma, hyperplastic polyp. Recheck in 5 years. H/O cystoscopy (Inactive) Onset Date: 06/16/14 frances, cysto w/ right retrograde pyelogramEGD w H/O esophagogastroduodenoscopy (Inactive) Onset Date: 08/04/17 Tommeraasen- Clotest negative. Minimal benign reactive gastropathy/chemical gastritis facetectomy (Inactive) Onset Date: 12/21/13 Foster L4 L5 H/O cardiac catheterization (Inactive) Onset Date: 2013 S/P hemilaminotomy (Inactive) Onset Date: 12/21/13 H/O inguinal hernia repair (Inactive) Onset Date: 07/15/12 Hx laparoscopic cholecystectomy (Inactive) Onset Date: 10/17/08 History of total abdominal hysterectomy and bilateral salpingo-oophorectomy (Inactive) Onset Date: 03/2006 H/O tooth extraction (Inactive) Onset Date: 07/2009 H/O thyroidectomy (Inactive) Onset Date: 2009 History of angioplasty Family History: Family History (Last Reviewed 10/26/18 @ 13:08 by Justine Barkley RN) Brother Heart disease Hypertension Father Myocardial infarction Cancer Mother Cryoglobulinemia Social History: Patient Lives/Resources With Spouse Utilized Occupation retired Preferred Language Belarusian Do you have any protestant or Yes: [employer] cultural preference? Smoking Status Former smoker Have you smoked in the past 12 Yes months Do you dip or chew tobacco No Abuse History No History of abuse Psych History Hx of Anxiety,Hx of Depression Alcohol Use none Drug Use none (Last Updated 10/23/18 @ 10:45 by Marely Tan DNP) No Social History Section defined Review Of Systems (GEN) - Review of Systems Generalized/Overall Review: Present: Weakness, Chills. Absent: Fever EENTM: Absent: Blurred Vision Respiratory: Present: Cough, Shortness of Breath. Absent: Orthopnea Cardiac: Absent: Chest Pain, Edema, Palpitations Abdominal: Absent: Nausea, Vomiting Genitourinary: Absent: Urgency, Frequency Musculoskeletal: Absent: Joint Pain Immunizations: IMMUNIZATION HX Immunizations Up to Date Yes History of Influenza Vaccine Yes Hx Pneumococcal Vaccination No Allergies/Adverse Reactions: Allergies Allergy/AdvReac Type Severity Reaction Status Date / Time ciprofloxacin HCl AdvReac Mild Nausea Verified 10/26/18 12:47 [From Cipro] codeine AdvReac Mild GI PAIN Verified 10/26/18 12:47 Home Medications: HOME MEDICATIONS Amitriptyline HCl [Amitriptyline (Elavil)] 25 mg PO HS 06/15/14 [Last Taken Unknown] Benazepril HCl [Lotensin] 20 mg PO BID 07/11/15 [Last Taken 08/04/17 06:45] Esomeprazole Magnesium [Nexium] 40 mg PO DAILY PRN 07/11/15 [Last Taken Unknown] Furosemide [Lasix] 40 mg PO Q7D PRN 07/11/15 [Last Taken Unknown] Carvedilol [Coreg] 6.25 mg PO BID 07/27/17 [Last Taken 10/25/18] Calcium Carbonate [Tums] 500 mg PO TID 07/28/17 [Last Taken Unknown] prochlorperazine maleate 10 mg tablet 10 mg PO Q6H PRN #30 tab MDD do not exceed 40mg/24hrs 05/18/18 [Last Taken 10/25/18] aspirin 81 mg tablet,delayed release 81 mg PO DAILY 07/06/18 [Last Taken 10/26/18] lorazepam 1 mg tablet 1 mg PO TID PRN #90 tab 10/19/18 [Last Taken Unknown] amoxicillin 875 mg-potassium clavulanate 125 mg tablet 1 tab PO BID 10 Days #20 tab 10/23/18 [Last Taken Unknown] benzonatate 200 mg capsule 200 mg PO TID PRN #15 cap 10/23/18 [Last Taken Unknown] Atorvastatin Calcium [Lipitor] 20 mg PO DAILY 10/26/18 [Last Taken Unknown] Nitrofurantoin Macrocrystal [Nitrofurantoin] 100 mg PO QID 10/26/18 [Last Taken 10/25/18] Exam - Exam Vital Signs: Vital Signs - Last Taken Temp 37.0 C 10/26/18 13:09 Pulse 72 10/26/18 13:09 Resp 20 10/26/18 13:09 BP 142/70 10/26/18 13:09 Pulse Ox 95 10/26/18 13:09 Constitutional: Present: Alert, Oriented x3, Cooperative ENT Exam: Present: hearing grossly normal Eye Exam: bilateral eye: normal inspection, PERRL, EOMI Neck: Present: supple Respiratory: Present: decreased breath sounds, crackles, No rales, No wheezing Cardiovascular/Chest: Present: regular rate, rhythm, no JVD, no murmur Abdomen: Present: Normal bowel sounds, soft, nontender, nondistended Extremity: Present: no calf tenderness, pedal edema - right Diagnostic Studies: Abnormal Lab Results 10/26/18 10/26/18 10/26/18 Range/Units 09:45 09:45 09:56 WBC 14.9 H (4.0-10.5) K/mm3 RBC 3.53 L (4.2-5.4) M/mm3 Hgb 11.1 L (12.5-16.0) gm/dL Hct 34.0 L (37.0-47.0) % MCH 31.4 H (27-31) pg Immature Gran % (Auto) 0.80 H (0.001-0.429) % Immature Gran # (Auto) 0.12 H (0.000-0.0310) K/mm3 Neutrophils % 79.9 H (42-75.0) % Lymphocytes % 8.6 L (20-51) % Eosinophils % 4.6 H (0.0-3.0) % Neutrophils # 11.9 H (1.3-6.0) K/mm3 Lymphocytes # 1.28 L (1.5-3.5) k/mm3 Potassium 3.3 L (3.4-4.6) mmol/L Anion Gap 14.4 H (6.8-13.8) mmol/L Total Bilirubin 1.2 H (0.0-1.1) mg/dL AST 94 H (0-48) U/L ALT 220 H (19-67) U/L Alkaline Phosphatase 179 H (50-170) U/L B-Natriuretic Peptide 1645 H (5-550) pg/mL Albumin 3.0 L (3.4-5.0) gm/dl Urine Blood 250 H (NEGATIVE) /ul Urine Bilirubin 1 H (NEGATIVE) mg/dl Ur Epithelial Cells 5-10 H (0-5) /hpf Laboratory Results WBC 14.9 K/mm3 (4.0-10.5) H 10/26/18 09:45 RBC 3.53 M/mm3 (4.2-5.4) L 10/26/18 09:45 Hgb 11.1 gm/dL (12.5-16.0) L 10/26/18 09:45 Hct 34.0 % (37.0-47.0) L 10/26/18 09:45 MCV 96.3 fl (78-100) 10/26/18 09:45 MCH 31.4 pg (27-31) H 10/26/18 09:45 MCHC 32.6 g/dl (32-36) 10/26/18 09:45 RDW 13.4 % (11.5-14.0) 10/26/18 09:45 Plt Count 165 K/mm3 (150-450) 10/26/18 09:45 MPV 10.9 fl (8-12.5) 10/26/18 09:45 Immature Gran % (Auto) 0.80 % (0.001-0.429) H 10/26/18 09:45 Immature Gran # (Auto) 0.12 K/mm3 (0.000-0.0310) H 10/26/18 09:45 Neutrophils % 79.9 % (42-75.0) H 10/26/18 09:45 Lymphocytes % 8.6 % (20-51) L 10/26/18 09:45 Monocytes % 5.8 % (0.0-9) 10/26/18 09:45 Eosinophils % 4.6 % (0.0-3.0) H 10/26/18 09:45 Basophils % 0.3 % (0.0-1.0) 10/26/18 09:45 Nucleated RBC % 0.0 k/mm3 (0-1) 10/26/18 09:45 Neutrophils # 11.9 K/mm3 (1.3-6.0) H 10/26/18 09:45 Lymphocytes # 1.28 k/mm3 (1.5-3.5) L 10/26/18 09:45 Monocytes # 0.9 k/mm3 (0.0-1.0) 12 09:45 Eosinophils # 0.7 k/mm3 (0.0-0.7) 10/26/18 09:45 Absolute Basophils 0.1 k/mm3 (0.0-0.1) 10/26/18 09:45 PT 10.7 Seconds (9.0-11.0) 10/26/18 09:45 INR (Anticoag Therapy) 1.07 INR (0.90-1.10) 10/26/18 09:45 PTT (Parmer) 26.6 Seconds (24-32) 10/26/18 09:45 Sodium 139 mmol/L (132-142) 10/26/18 09:45 Plasma Sodium 139 mmol/L (130-142) 12 09:45 Potassium 3.3 mmol/L (3.4-4.6) L 10/26/18 09:45 Chloride 101 mmol/L (97-106) 10/26/18 09:45 Carbon Dioxide 26.9 mmol/L (24-32.6) 10/26/18 09:45 Anion Gap 14.4 mmol/L (6.8-13.8) H 10/26/18 09:45 BUN 11 mg/dL (3-23) 10/26/18 09:45 Creatinine 0.59 mg/dL (0.4-1.4) 10/26/18 09:45 Est GFR (Non-Af Amer) 106 mL/min (60-130) 10/26/18 09:45 BUN/Creatinine Ratio 18.6 (9.0-21.6) 10/26/18 09:45 Random Glucose 109 mg/dL (70-110) 10/26/18 09:45 Lactic Acid, Venous 0.8 mmol/L (0.4-2.0) 10/26/18 09:45 Calcium 8.8 mg/dL (7.9-10.9) 12 09:45 Calcium Adj for Albumin 9.3 mg/dL (8.4-10.2) 10/26/18 09:45 Total Bilirubin 1.2 mg/dL (0.0-1.1) H 10/26/18 09:45 AST 94 U/L (0-48) H 10/26/18 09:45 ALT 220 U/L (19-67) H 10/26/18 09:45 Alkaline Phosphatase 179 U/L (50-170) H 10/26/18 09:45 Troponin I Less than 0.017 ng/mL (0.00-0.10) 10/26/18 09:45 B-Natriuretic Peptide 1645 pg/mL (5-550) H 10/26/18 09:45 Total Protein 6.6 gm/dL (6.2-8.2) 10/26/18 09:45 Albumin 3.0 gm/dl (3.4-5.0) L 12 09:45 Urine Color Dark yellow 10/26/18 09:56 Urine Appearance Slightly cloudy (CLEAR) 10/26/18 09:56 Urine pH 6.0 pH (5.0-7.0) 10/26/18 09:56 Ur Specific [place] 1.025 SP.GR. (1.005-1.010) 10/26/18 09:56 Urine Protein Negative mg/dL (NEGATIVE) 10/26/18 09:56 Urine Glucose (UA) Negative mg/dL (NEGATIVE) 10/26/18 09:56 Urine Ketones 15 mg/dL (NEGATIVE) 10/26/18 09:56 Urine Blood 250 /ul (NEGATIVE) H 10/26/18 09:56 Urine Nitrate Negative (NEGATIVE) 10/26/18 09:56 Urine Bilirubin 1 mg/dl (NEGATIVE) H 10/26/18 09:56 Urine Ictotest Negative (NEGATIVE) 10/26/18 09:56 Urine Urobilinogen Normal EU/dl (NORMAL) 10/26/18 09:56 Ur Leukocyte Esterase Negative /ul (NEGATIVE) 10/26/18 09:56 Urine RBC None seen /hpf (0-5) 10/26/18 09:56 Urine WBC None seen /hpf (0-5) 10/26/18 09:56 Ur Epithelial Cells 5-10 /hpf (0-5) H 10/26/18 09:56 Urine Bacteria Trace (NONE) 10/26/18 09:56 Urine Culture Comments No culture indicated 10/26/18 09:56 Assessment/Plan - Narrative Narrative: Will treta her for CAP and resume most of her home medications. - Assessment/Plan (1) Failure of outpatient treatment Problem: Acute (2) Chronic obstructive pulmonary disease with acute lower respiratory infection Assessment: will continue with breathing treatments. Problem: Acute (3) Pneumonia Assessment: will start her on IV Rocephin and Azithrmycin. Problem: Acute Qualifiers: Pneumonia type: due to unspecified organism Laterality: unspecified laterality Lung location: unspecified part of lung Qualified Code(s): J18.9 - Pneumonia, unspecified organism (4) Hypoxemia Assessment: keep her on NC Problem: Acute (5) CAD (coronary artery disease) Problem: Chronic (6) Depression Problem: Chronic (7) Hyperlipidemia Problem: Chronic (8) Hypertension Problem: Chronic (9) Hypothyroidism Problem: Acute
[2018-10-26] MEDS ORDERED: FUROSEMIDE 40 MG TABLET PO PRN (16:47)
[2018-10-26] MEDS ORDERED: PANTOPRAZOLE SODIUM 40 MG TABLET.EC PO PRN (16:47)
[2018-10-26] MEDS ORDERED: BENZONATATE 100 MG CAPSULE PO PRN (16:47)
[2018-10-26] MEDS ORDERED: ALBUTEROL SULFATE/IPRATROPIUM 3 ML NEBU IH PRN (16:50)
[2018-10-26] MEDS: CALCIUM CARBONATE 500 MG TAB.CHEW PO SCH (17:01)
[2018-10-26] MEDS: METHYLPREDNISOLONE SOD SUCC/PF 40 MG/ML VIAL IV SCH ×2 (17:06→22:51)
[2018-10-26] MEDS: CARVEDILOL 6.25 MG TABLET PO SCH (21:29)
[2018-10-26] MEDS: ENALAPRIL MALEATE 20 MG TABLET PO SCH (21:29)
[2018-10-26] MEDS: AMITRIPTYLINE HCL 25 MG TABLET PO SCH (21:29)
[2018-10-26] MEDS: LORazepam 1 MG TABLET PO PRN (21:31)
[2018-10-27] MEDS: METHYLPREDNISOLONE SOD SUCC/PF 40 MG/ML VIAL IV SCH (04:42)
--- NOTE | 2018-10-27 08:13 | PN ---
Subjective - Date and Time Seen Date: 10/27/18 Time: 08:09 Subjective Narrative: Feels a little bit better.. Reviewing PMHx- no h/o COPD. 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 [place] do Pft when patient is better as outpatient. Objective - Review of Systems Generalized/Overall Review: Denies: Weakness, Chills, Fever EENTM: Denies: Blurred Vision Respiratory: Reports: Cough, Shortness of Breath. Denies: Wheezing Cardiac: Denies: Chest Pain, Edema, Palpitations Abdominal: Denies: Nausea, Vomiting Genitourinary Symptoms: Denies: Urgency, Frequency Musculoskeletal Complaints: Denies: Joint Pain - Vitals Vitals: Last Vital Signs Temp 36.5 C 10/27/18 06:55 Pulse 56 L 10/27/18 06:55 Resp 18 10/27/18 06:55 BP 113/49 10/27/18 06:55 Pulse Ox 94 10/27/18 06:55 - Abnormal Lab Findings Abnormal Lab Findings: Abnormal Lab Results 10/26/18 10/26/18 10/26/18 Range/Units 09:45 09:45 09:56 WBC 14.9 H (4.0-10.5) K/mm3 RBC 3.53 L (4.2-5.4) M/mm3 Hgb 11.1 L (12.5-16.0) gm/dL Hct 34.0 L (37.0-47.0) % MCH 31.4 H (27-31) pg Immature Gran % (Auto) 0.80 H (0.001-0.429) % Immature Gran # (Auto) 0.12 H (0.000-0.0310) K/mm3 Neutrophils % 79.9 H (42-75.0) % Lymphocytes % 8.6 L (20-51) % Eosinophils % 4.6 H (0.0-3.0) % Neutrophils # 11.9 H (1.3-6.0) K/mm3 Lymphocytes # 1.28 L (1.5-3.5) k/mm3 Potassium 3.3 L (3.4-4.6) mmol/L Anion Gap 14.4 H (6.8-13.8) mmol/L Total Bilirubin 1.2 H (0.0-1.1) mg/dL AST 94 H (0-48) U/L ALT 220 H (19-67) U/L Alkaline Phosphatase 179 H (50-170) U/L B-Natriuretic Peptide 1645 H (5-550) pg/mL Albumin 3.0 L (3.4-5.0) gm/dl Urine Blood 250 H (NEGATIVE) /ul Urine Bilirubin 1 H (NEGATIVE) mg/dl Ur Epithelial Cells 5-10 H (0-5) /hpf - Exam Constitutional: Present: Alert, Oriented x3, Cooperative ENT Exam: Present: hearing grossly normal Neck: Present: supple Respiratory: Present: decreased breath sounds, No rales, No wheezing Cardiovascular/Chest: Present: regular rate, rhythm, no JVD, no murmur Abdomen: Present: Normal bowel sounds, soft, nontender, nondistended Extremity: Present: no pedal edema, no calf tenderness Assessment/Plan - Problems/Diagnosis (1) Failure of outpatient treatment Problem: Acute (2) Pneumonia Problem: Acute Qualifiers: Pneumonia type: due to unspecified organism Laterality: unspecified laterality Lung location: unspecified part of lung Qualified Code(s): J18.9 - Pneumonia, unspecified organism Narrative: continue with IV antibitoics. (3) Elevated LFTs Problem: Acute Narrative: will do US . (4) Hypoxemia Problem: Resolved (5) CAD (coronary artery disease) Problem: Chronic (6) Depression Problem: Chronic (7) Hyperlipidemia Problem: Chronic (8) Hypertension Problem: Chronic (9) Hypothyroidism Problem: Acute
[2018-10-27 08:27] LABS: Hematocrit 33.2 % (37.0-47.0); Hemoglobin 10.9 gm/dL (12.5-16.0); Mean Cell Volume 96.8 fl (78-100); Mean Corpuscular Hemoglobin 31.8 pg (27-31); Mean Corpuscular Hgb Conc 32.8 g/dl (32-36); Mean Platelet Volume 11.2 fl (8-12.5); Neutrophil # 10.5 K/mm3 (1.3-6.0); Neutrophil % 86.9 % (42-75.0); Platelet Count 175 K/mm3 (150-450); Red Blood Count 3.43 M/mm3 (4.2-5.4); Red Cell Distribution Width 13.2 % (11.5-14.0); White Blood Count 12.1 K/mm3 (4.0-10.5)
[2018-10-27 08:35] LABS: Albumin * 2.9 gm/dl (3.4-5.0); Anion Gap 12.3 mmol/L (6.8-13.8); BUN/Creatinine Ratio 17.2 (9.0-21.6); Bilirubin, Total 0.6 mg/dL (0.0-1.1); Ca. Corrected For Albumin 9.5 mg/dL (8.4-10.2); Calcium * 8.9 mg/dL (7.9-10.9); Carbon Dioxide 27.1 mmol/L (24-32.6); Potassium 3.4 mmol/L (3.4-4.6); Total Protein 6.7 gm/dL (6.2-8.2)
[2018-10-27] MEDS: ENOXAPARIN SODIUM 40 MG/0.4 ML SYRG SC SCH (08:35)
[2018-10-27] MEDS: ASPIRIN 81 MG TABLET.DR PO SCH (08:35)
[2018-10-27] MEDS: FUROSEMIDE 40 MG TABLET PO SCH (08:36)
[2018-10-27] MEDS: ENALAPRIL MALEATE 20 MG TABLET PO SCH ×2 (08:36→20:33)
[2018-10-27] MEDS: CALCIUM CARBONATE 500 MG TAB.CHEW PO SCH ×3 (08:36→17:23)
[2018-10-27] MEDS: ROSUVASTATIN CALCIUM 10 MG TABLET PO SCH (08:36)
[2018-10-27] MEDS: CARVEDILOL 6.25 MG TABLET PO SCH ×2 (08:36→20:32)
[2018-10-27] MEDS: AZITHROMYCIN 250 MG TABLET PO SCH (08:36)
[2018-10-27] MEDS: LORazepam 1 MG TABLET PO PRN ×2 (08:41→20:33)
[2018-10-27] MEDS: NORMAL SALINE 1,000 ML IV PRN (08:46)
[2018-10-27 12:21] LABS: Chol/HDL Risk Ratio 5.4 mg/dL (3.3-4.4)
[2018-10-27] MEDS: AMITRIPTYLINE HCL 25 MG TABLET PO SCH (20:33)
[2018-10-28 06:20] LABS: Hematocrit 30.9 % (37.0-47.0); Hemoglobin 9.9 gm/dL (12.5-16.0); Mean Cell Volume 98.1 fl (78-100); Mean Corpuscular Hemoglobin 31.4 pg (27-31); Mean Platelet Volume 10.6 fl (8-12.5); Neutrophil # 9.2 K/mm3 (1.3-6.0); Neutrophil % 65.8 % (42-75.0); Platelet Count 162 K/mm3 (150-450); Red Blood Count 3.15 M/mm3 (4.2-5.4); Red Cell Distribution Width 13.4 % (11.5-14.0); White Blood Count 13.9 K/mm3 (4.0-10.5)
[2018-10-28] MEDS: LORazepam 1 MG TABLET PO PRN ×3 (06:31→22:15)
[2018-10-28 06:33] LABS: Albumin * 2.6 gm/dl (3.4-5.0); Anion Gap 8.3 mmol/L (6.8-13.8); Bilirubin, Total 0.4 mg/dL (0.0-1.1); Ca. Corrected For Albumin 9.4 mg/dL (8.4-10.2); Calcium * 8.6 mg/dL (7.9-10.9); Carbon Dioxide 31.3 mmol/L (24-32.6); Potassium 3.6 mmol/L (3.4-4.6); Total Protein 5.7 gm/dL (6.2-8.2)
--- NOTE | 2018-10-28 08:38 | PN ---
Subjective - Date and Time Seen Date: 10/28/18 Time: 08:31 Subjective Narrative: Patient febrile , positive mouth sore due to dentures. WBC up today. 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 Objective - Review of Systems Generalized/Overall Review: Denies: Weakness, Chills, Fever EENTM: Denies: Blurred Vision Respiratory: Reports: Cough. Denies: Shortness of Breath, Wheezing Cardiac: Denies: Chest Pain, Edema, Palpitations Abdominal: Denies: Nausea, Vomiting Genitourinary Symptoms: Reports: Dysuria. Denies: Urgency, Frequency Musculoskeletal Complaints: Denies: Joint Pain Skin: Reports: Lesions - mouth - Vitals Vitals: Last Vital Signs Temp 36.8 C 10/28/18 07:23 Pulse 54 L 10/28/18 07:23 Resp 16 10/28/18 07:23 BP 145/64 10/28/18 07:23 Pulse Ox 94 10/28/18 07:23 - Abnormal Lab Findings Abnormal Lab Findings: Abnormal Lab Results 10/27/18 10/27/18 10/27/18 Range/Units 08:20 08:20 08:30 WBC 12.1 H (4.0-10.5) K/mm3 RBC 3.43 L (4.2-5.4) M/mm3 Hgb 10.9 L (12.5-16.0) gm/dL Hct 33.2 L (37.0-47.0) % MCH 31.8 H (27-31) pg Immature Gran % (Auto) 0.90 H (0.001-0.429) % Immature Gran # (Auto) 0.11 H (0.000-0.0310) K/mm3 Neutrophils % 86.9 H (42-75.0) % Lymphocytes % 10.5 L (20-51) % Neutrophils # 10.5 H (1.3-6.0) K/mm3 Lymphocytes # 1.27 L (1.5-3.5) k/mm3 Sodium (132-142) mmol/L Plasma Sodium (130-142) mmol/L Chloride (97-106) mmol/L BUN/Creatinine Ratio (9.0-21.6) Random Glucose 187 H D (70-110) mg/dL ALT 152 H (19-67) U/L Total Protein (6.2-8.2) gm/dL Albumin 2.9 L (3.4-5.0) gm/dl LDL Cholesterol 151 H (70-130) mg/dL HDL Cholesterol 37 L (40-60) mg/dL Cholesterol/HDL Ratio 5.4 H (3.3-4.4) mg/dL 10/28/18 10/28/18 Range/Units 06:17 06:17 WBC 13.9 H (4.0-10.5) K/mm3 RBC 3.15 L (4.2-5.4) M/mm3 Hgb 9.9 L (12.5-16.0) gm/dL Hct 30.9 L (37.0-47.0) % MCH 31.4 H (27-31) pg Immature Gran % (Auto) 0.60 H (0.001-0.429) % Immature Gran # (Auto) 0.08 H (0.000-0.0310) K/mm3 Neutrophils % (42-75.0) % Lymphocytes % (20-51) % Neutrophils # 9.2 H (1.3-6.0) K/mm3 Lymphocytes # (1.5-3.5) k/mm3 Sodium 144 H (132-142) mmol/L Plasma Sodium 144 H (130-142) mmol/L Chloride 108 H (97-106) mmol/L BUN/Creatinine Ratio 23.0 H (9.0-21.6) Random Glucose (70-110) mg/dL ALT 107 H (19-67) U/L Total Protein 5.7 L (6.2-8.2) gm/dL Albumin 2.6 L (3.4-5.0) gm/dl LDL Cholesterol (70-130) mg/dL HDL Cholesterol (40-60) mg/dL Cholesterol/HDL Ratio (3.3-4.4) mg/dL - Exam Constitutional: Present: Alert, Oriented x3, Cooperative ENT Exam: Present: hearing grossly normal Neck: Present: supple Respiratory: Present: decreased breath sounds, crackles, No wheezing Cardiovascular/Chest: Present: regular rate, rhythm, no JVD, no murmur Abdomen: Present: Normal bowel sounds, soft, nontender, nondistended Extremity: Present: no pedal edema, no calf tenderness Assessment/Plan - Problems/Diagnosis (1) Failure of outpatient treatment Problem: Acute (2) Pneumonia Problem: Acute Qualifiers: Pneumonia type: due to unspecified organism Laterality: unspecified laterality Lung location: unspecified part of lung Qualified Code(s): J18.9 - Pneumonia, unspecified organism Narrative: Commuinity acquired penumonia- CXR unoffficailly shows interval progression. will await official reading. WBC up . last steroids yesterday morning. will change Rocephin to Cefipime. ADDENDUM:. CXR official reading- 1. MILDLY ENLARGED HEART. 2. INTERVAL PROGRESSION INTERSTITIAL PROMINENCE; PULMONARY CONGESTION VERSUS INTERSTITIAL PNEUMONITIS. 3. PATCHY INFILTRATES, CONCERNING FOR WORSENING PNEUMONIA. 4. CORRELATION AND FOLLOW-UP RECOMMENDED. (3) Elevated LFTs Problem: Acute Narrative: likely due to fatty liver. (4) Hypoxemia Problem: Resolved Narrative: suspect COPD vs RLD with exacerbation. (5) CAD (coronary artery disease) Problem: Chronic (6) Depression Problem: Chronic (7) Hyperlipidemia Problem: Chronic (8) Hypertension Problem: Chronic (9) Hypothyroidism Problem: Acute (10) Mouth sores Problem: Acute Narrative: saline gurgles.
[2018-10-28] MEDS: ASPIRIN 81 MG TABLET.DR PO SCH (08:43)
[2018-10-28] MEDS: AZITHROMYCIN 250 MG TABLET PO SCH (08:43)
[2018-10-28] MEDS: ENOXAPARIN SODIUM 40 MG/0.4 ML SYRG SC SCH (08:43)
[2018-10-28] MEDS: ROSUVASTATIN CALCIUM 10 MG TABLET PO SCH (08:43)
[2018-10-28] MEDS: FUROSEMIDE 40 MG TABLET PO SCH (08:44)
[2018-10-28] MEDS: CARVEDILOL 6.25 MG TABLET PO SCH ×2 (08:44→22:00)
[2018-10-28] MEDS: ENALAPRIL MALEATE 20 MG TABLET PO SCH ×2 (08:45→22:01)
[2018-10-28] MEDS: CALCIUM CARBONATE 500 MG TAB.CHEW PO SCH ×3 (08:46→17:09)
[2018-10-28] MEDS: CEFEPIME HCL 1 GM in DEXTROSE 5 % IN WATER 100 ML IV SCH ×4 (09:14→21:59)
[2018-10-28] MEDS: NYSTATIN 30 ML, diphenhydrAMINE HCL 75 MG, LIDOCAINE HCL 30 ML, MAG HYDROX/ALUMINUM HYD... PO SCH ×8 (11:14→17:08)
[2018-10-28 11:16] LABS: Hepatitis C Antibody NON-REACTIVE (NON-REACTIVE); Hepatitis Panel Confirmation DNR
[2018-10-28 13:27] LABS: Hepatitis A IgM Antibody NON-REACTIVE (NON-REACTIVE); Hepatitis B Surface Antigen NON-REACTIVE (NON-REACTIVE)
[2018-10-28] MEDS: AMITRIPTYLINE HCL 25 MG TABLET PO SCH (22:01)
[2018-10-29 05:31] LABS: Albumin * 2.7 gm/dl (3.4-5.0); Anion Gap 6.6 mmol/L (6.8-13.8); BUN/Creatinine Ratio 14.1 (9.0-21.6); Bilirubin, Total 0.5 mg/dL (0.0-1.1); Ca. Corrected For Albumin 9.1 mg/dL (8.4-10.2); Calcium * 8.4 mg/dL (7.9-10.9); Carbon Dioxide 32.8 mmol/L (24-32.6); Potassium 3.4 mmol/L (3.4-4.6); Total Protein 5.8 gm/dL (6.2-8.2)
[2018-10-29 06:10] LABS: Hematocrit 33.5 % (37.0-47.0); Hemoglobin 10.8 gm/dL (12.5-16.0); Mean Cell Volume 96.8 fl (78-100); Mean Corpuscular Hemoglobin 31.2 pg (27-31); Mean Corpuscular Hgb Conc 32.2 g/dl (32-36); Mean Platelet Volume 11.2 fl (8-12.5); Neutrophil # 3.7 K/mm3 (1.3-6.0); Neutrophil % 44.2 % (42-75.0); Platelet Count 191 K/mm3 (150-450); Red Blood Count 3.46 M/mm3 (4.2-5.4); Red Cell Distribution Width 13.5 % (11.5-14.0); White Blood Count 8.5 K/mm3 (4.0-10.5)
[2018-10-29] MEDS: LORazepam 1 MG TABLET PO PRN (06:59)
[2018-10-29] MEDS: NYSTATIN 30 ML, diphenhydrAMINE HCL 75 MG, LIDOCAINE HCL 30 ML, MAG HYDROX/ALUMINUM HYD... PO SCH ×4 (07:01)
--- NOTE | 2018-10-29 07:47 | DS ---
(1) Failure of outpatient treatment Problem: Acute (2) Pneumonia Problem: Acute Qualifiers: Pneumonia type: due to unspecified organism Laterality: unspecified laterality Lung location: unspecified part of lung Qualified Code(s): J18.9 - Pneumonia, unspecified organism (3) Elevated LFTs Problem: Acute (4) Hypoxemia Problem: Resolved (5) CAD (coronary artery disease) Problem: Chronic (6) Depression Problem: Chronic (7) Hyperlipidemia Problem: Chronic (8) Hypertension Problem: Chronic (9) Hypothyroidism Problem: Acute (10) Mouth sores Problem: Acute (11) Cardiomyopathy Problem: Chronic Qualifiers: Cardiomyopathy type: ischemic Qualified Code(s): I25.5 - Ischemic cardiomyopathy Description of Stay: Nyla Mendoza, is a 73-year-old white female, with previous medical history of hypertension, hyperlipidemia, hypothyroid to see him, coronary artery disease, who was admitted on 10/26/2018 because of coughing and weakness. 1-1/2 weeks prior to admission the patient started having cough mostly nonproductive. 4 days prior to admission she went to our walk-in clinic and was diagnosed with an ear infection as well as a sinus infection. She was started on Augmentin. Today her cough started getting worse and she was getting more weak and so she went or emergency room. Her oxygen saturation in the emergency room was 91% on room air and was she was being transferred her saturation dropped down to 87% and she became more dyspneic. She was started on 2 L of nasal cannula which brought her oxygen saturation to 97%. A chest x-ray was done which showed showed central vascular congestion likely edema versus pneumonitis. Her white blood cell count was elevated at 14.9. She denied any chest pains, orthopnea, edema, fever, weight gain but admitted to chills. She did have urinary tract infection 2 weeks ago and was treated with Macrobid. One of her complaints today emergency room was that she was still having pelvic pressure and an abdominal x-ray was done which showed no acute intra-abdominal findings. She was then admitted for pneumonia. She as continued in IV Rocephin and Azithromycin for Community acquired Pneumomia. Her elevated LFT's is likely due to fatty liver. Her UA did not show UTI. Her WBC intitially improved but then bumped again with interval worsening of her infiltrates. She changed to IV Cefepime to cover pseudomonas as she has been on antibiotics in the outpatient. Her WBC count today is down to normal. She will be discharged on Levaquin 750 mg PO QD for 5-7 days. Procedures Performed: none Results and Findings: Pending Mircobiology Results 10/26/18 10:22 Blood Blood Culture - Preliminary NO GROWTH AFTER 48 HOURS 10/26/18 09:45 Blood Blood Culture - Preliminary NO GROWTH AFTER 48 HOURS Lab Pending Results 10/26/18 09:45: WBC 14.9 H, RBC 3.53 L, Hgb 11.1 L, Hct 34.0 L, MCV 96.3, MCH 31.4 H, MCHC 32.6, RDW 13.4, Plt Count 165, MPV 10.9, Immature Gran % (Auto) 0.80 H, Immature Gran # (Auto) 0.12 H, Neutrophils % 79.9 H, Lymphocytes % 8.6 L, Monocytes % 5.8, Eosinophils % 4.6 H, Basophils % 0.3, Nucleated RBC % 0.0, Neutrophils # 11.9 H, Lymphocytes # 1.28 L, Monocytes # 0.9, Eosinophils # 0.7, Absolute Basophils 0.1 10/26/18 09:45: PT 10.7, INR (Anticoag Therapy) 1.07, PTT ([place]) 26.6 10/26/18 09:45: Sodium 139, Plasma Sodium 139, Potassium 3.3 L, Chloride 101, Carbon Dioxide 26.9, Anion Gap 14.4 H, BUN 11, Creatinine 0.59, Est GFR (Non-Af Amer) 106, BUN/Creatinine Ratio 18.6, Random Glucose 109, Calcium 8.8, Calcium Adj for Albumin 9.3, Total Bilirubin 1.2 H, AST 94 H, ALT 220 H, Alkaline Phosphatase 179 H, Troponin I Less than 0.017, B-Natriuretic Peptide 1645 H, Total Protein 6.6, Albumin 3.0 L 10/26/18 09:45: Lactic Acid, Venous 0.8 10/26/18 09:56: Urine Color Dark yellow, Urine Appearance Slightly cloudy, Urine pH 6.0, Ur Specific [place] 1.025, Urine Protein Negative, Urine Glucose (UA) Negative, Urine Ketones 15, Urine Blood 250 H, Urine Nitrate Negative, Urine Bilirubin 1 H, Urine Ictotest Negative, Urine Urobilinogen Normal, Ur Leukocyte Esterase Negative, Urine RBC None seen, Urine WBC None seen, Ur Epithelial Cells 5-10 H, Urine Bacteria Trace, Urine Culture Comments No culture indicated 10/27/18 08:20: WBC 12.1 H, RBC 3.43 L, Hgb 10.9 L, Hct 33.2 L, MCV 96.8, MCH 31.8 H, MCHC 32.8, RDW 13.2, Plt Count 175, MPV 11.2, Immature Gran % (Auto) 0.90 H, Immature Gran # (Auto) 0.11 H, Neutrophils % 86.9 H, Lymphocytes % 10.5 L, Monocytes % 1.4, Eosinophils % 0.1, Basophils % 0.2, Nucleated RBC % 0.0, Neutrophils # 10.5 H, Lymphocytes # 1.27 L, Monocytes # 0.2, Eosinophils # 0.0, Absolute Basophils 0.0 10/27/18 08:20: Sodium 141, Plasma Sodium 142, Potassium 3.4, Chloride 105, Carbon Dioxide 27.1, Anion Gap 12.3, BUN 11, Creatinine 0.64, Est GFR (Non-Af Amer) 96, BUN/Creatinine Ratio 17.2, Random Glucose 187 H D, Calcium 8.9, Calcium Adj for Albumin 9.5, Total Bilirubin 0.6, AST 34, ALT 152 H, Alkaline Phosphatase 166, Total Protein 6.7, Albumin 2.9 L 10/27/18 08:20: Hepatitis A IgM Ab Non-reactive, Hep Bs Antigen Non-reactive, Hep B Core IgM Ab Non-reactive, Hepatitis C Antibody Non-reactive, Hep C Ab Signal/Cutoff 0.01, Hepatitis Interpret Dnr 10/27/18 08:30: Triglycerides 62, Cholesterol 200, LDL Cholesterol 151 H, VLDL Cholesterol 12, HDL Cholesterol 37 L, Cholesterol/HDL Ratio 5.4 H 10/28/18 06:17: WBC 13.9 H, RBC 3.15 L, Hgb 9.9 L, Hct 30.9 L, MCV 98.1, MCH 31.4 H, MCHC 32.0, RDW 13.4, Plt Count 162, MPV 10.6, Immature Gran % (Auto) 0.60 H, Immature Gran # (Auto) 0.08 H, Neutrophils % 65.8, Lymphocytes % 25.0, Monocytes % 6.6, Eosinophils % 1.7, Basophils % 0.3, Nucleated RBC % 0.0, Neutrophils # 9.2 H, Lymphocytes # 3.48, Monocytes # 0.9, Eosinophils # 0.2, Absolute Basophils 0.0 10/28/18 06:17: Sodium 144 H, Plasma Sodium 144 H, Potassium 3.6, Chloride 108 H, Carbon Dioxide 31.3, Anion Gap 8.3, BUN 14, Creatinine 0.61, Est GFR (Non-Af Amer) 102, BUN/Creatinine Ratio 23.0 H, Random Glucose 91 D, Calcium 8.6, Calcium Adj for Albumin 9.4, Total Bilirubin 0.4, AST 27, ALT 107 H, Alkaline Phosphatase 131, Total Protein 5.7 L, Albumin 2.6 L 10/29/18 05:17: WBC 8.5 D, RBC 3.46 L, Hgb 10.8 L, Hct 33.5 L, MCV 96.8, MCH 31.2 H, MCHC 32.2, RDW 13.5, Plt Count 191, MPV 11.2, Immature Gran % (Auto) 1.10 H, Immature Gran # (Auto) 0.09 H, Neutrophils % 44.2, Lymphocytes % 37.0, Monocytes % 9.0, Eosinophils % 7.9 H, Basophils % 0.8, Nucleated RBC % 0.0, Neutrophils # 3.7, Lymphocytes # 3.13, Monocytes # 0.8, Eosinophils # 0.7, Absolute Basophils 0.1 10/29/18 05:17: Sodium 142, Plasma Sodium 142, Potassium 3.4, Chloride 106, Carbon Dioxide 32.8 H, Anion Gap 6.6 L, BUN 10, Creatinine 0.71, Est GFR (Non-Af Amer) 85, BUN/Creatinine Ratio 14.1, Random Glucose 92, Calcium 8.4, Calcium Adj for Albumin 9.1, Total Bilirubin 0.5, AST 20, ALT 84 H, Alkaline Phosphatase 127, Total Protein 5.8 L, Albumin 2.7 L Discharge Location: Home Disposition: Home self-care Condition: Stable Discharge Activity: Activity as tolerated Discharge Diet: Low salt Referrals: Conchis Coker MD [Primary Care Provider] - Additional Patient Instructions (free text): -Please make TCM appointment unless group home discharge. Thank you! Kristie @ [phone]. Follow up with PCP in 1 week. Prescriptions (Any new or edited meds): Levofloxacin [Levaquin] 750 mg PO DAILY 7 Days #7 tablet Complete Home Medications List: Complete Home Medication List: Amitriptyline HCl [Elavil] 25 mg PO HS 06/15/14 Benazepril HCl [Lotensin] 20 mg PO BID 07/11/15 Esomeprazole Magnesium [Nexium] 40 mg PO DAILY PRN 07/11/15 Furosemide [Lasix] 40 mg PO Q7D PRN 07/11/15 Carvedilol [Coreg] 6.25 mg PO BID 07/27/17 Calcium Carbonate [Tums] 500 mg PO TID 07/28/17 prochlorperazine maleate 10 mg tablet 10 mg PO Q6H PRN #30 tab MDD do not exceed 40mg/24hrs 05/18/18 aspirin 81 mg tablet,delayed release 81 mg PO DAILY 07/06/18 lorazepam 1 mg tablet 1 mg PO TID PRN #90 tab 10/19/18 benzonatate 200 mg capsule 200 mg PO TID PRN #15 cap 10/23/18 Atorvastatin Calcium [Lipitor] 20 mg PO DAILY 10/26/18 Levofloxacin [Levaquin] 750 mg PO DAILY 7 Days #7 tablet 10/29/18 Potassium Chloride [K-Dur] 20 meq PO DAILY tablet.sa 10/29/18
[2018-10-29] MEDS ORDERED: POTASSIUM CHLORIDE 20 MEQ TABLET.SA PO SCH (09:00)
[2018-10-29 09:39] VITALS: BP 135/76
== END 2018-10-29 09:30 | disposition home or self-care (01) | DRG 195 ==
LOC: ER 09:02 → MS 11:51
PROVIDERS: ADMIT Internal Medicine; ATTEND Internal Medicine
DX: R06.00 Dyspnea, unspecified
CPT/HCPCS: 36415; 71020; 71046; 74019; 74020; 76705; 80053; 80061; 80074; 81001; 83519; 83605; 83880; 84484; 85025; 85610; 85730; 87040; 93005; 96361; 96365; 96375; 99285

== ENCOUNTER → 2020-03-09 12:40 | Observation (INO) ==
--- NOTE | 2020-03-08 11:51 | HP ---
Chief Complaint - Chief Complaint Date of Service: 03/08/20 Time of Service: 11:51 Chief Complaint: Cough and Shortness of breath History of Present Illness: 74 year old F with past medical history of smoking for greater than 20 years, CAD (history of [place]), Cardiomyopathy,, Hypothyroidism, Hyperlipidemia, Essential Hypertension, GERD, Diverticulosis, presents to the respiratory clinic this morning with complaints dry rough cough, runny nose and shortness of breath progressively getting worse for almost 2 weeks. Contacted PCP: Dr. Coker and prescribed tessalon perles for cough with minimal relief. Patient states she has old breathing treatments at home that she has been using frequently with minimal relief. Denies any recent travel or contact with known +ve COVID-19 patient. Denies previous diagnosis of COPD. In respiratory clinic, Vital signs are concerning for hypoxemia 92-93% on RA. Patient states she does not use oxygen at home. On PE, diffuse wheezing is appreciated with prolonged expiratory phase, and pat ient is actively coughing, and its non productive. Received Rhoda-Neb breathing treatment in clinic with minimal improvement. Patient met criteria for COVID-19 rule out. Swab for Strep and Influenza which were both negative. COVID-19 swab completed and sent to [facility] hygienic lab. Labs and CXR obtained. Discussed results with with patient, advised will admit overnight for treatment for acute respiratory symptoms, and will be placed in isolation room and most likely discharge tomorrow AM. Patient voiced understanding and agreeable with plan. Medical History (Last Reviewed 03/08/20 @ 09:11 by Cira Jonas CMA) Cough (Acute) Diffuse wheezing (Acute) Suspected COVID-19 virus infection (Suspected) Pneumonia (Acute) Hypoxemia (Acute) Failure of outpatient treatment (Acute) Elevated LFTs (Acute) Mouth sores (Acute) Cardiomyopathy (Chronic) Low back pain (Acute) CAD (coronary artery disease) (Chronic) s/p PTCA GERD (gastroesophageal reflux disease) (Chronic) Hypothyroidism (Chronic) Has received vaccination for influenza (Acute) Onset Date: Unknown Ankle fracture (Inactive) Onset Date: Unknown CAD (coronary artery disease) (Chronic) Onset Date: Unknown s/p angioplasty of LAD in 1989 Cystocele with rectocele (Chronic) Onset Date: Unknown Depression (Chronic) Onset Date: Unknown Deviated nasal septum (Inactive) Onset Date: Unknown Diverticulosis (Chronic) Onset Date: 05/2005 Hyperlipidemia (Chronic) Onset Date: 1998 Hypertension (Chronic) Onset Date: Unknown Myocardial infarction (Inactive) Onset Date: 1989 anterior wall [place] and PTCA and LAD Osteopenia (Chronic) Onset Date: Unknown Cancer of thyroid gland (Inactive) Onset Date: Unknown Thyroid cancer (Chronic) papillary s/p hemithyroidectomy Cardiomyopathy (Chronic) RF 45-50% Sciatica of right side (Inactive) Onset Date: ~2003 Fracture of distal end of fibula (Inactive) Onset Date: Unknown GERD (gastroesophageal reflux disease) (Chronic) Onset Date: 1998 Anxiety (Chronic) Onset Date: Unknown UTI (urinary tract infection) (Acute) Sensorineural hearing loss Onset Date: Unknown Surgical History: Surgical History (Last Reviewed 03/08/20 @ 09:11 by Cira Jonas CMA) bladder prolapse surgery (Inactive) Onset Date: 03/2006 H/O colonoscopy (Inactive) Onset Date: 07/17/15 Tinguely- tubular adenoma, hyperplastic polyp. Recheck in 5 years. H/O cystoscopy (Inactive) Onset Date: 06/16/14 frances cysto w/ right retrograde pyelogramEGD w H/O esophagogastroduodenoscopy (Inactive) Onset Date: 08/04/17 Tommeraasen- Clotest negative. Minimal benign reactive gastropathy/chemical gastritis facetectomy (Inactive) Onset Date: 12/21/13 Foster L4 L5 H/O cardiac catheterization (Inactive) Onset Date: 2013 S/P hemilaminotomy (Inactive) Onset Date: 12/21/13 H/O inguinal hernia repair (Inactive) Onset Date: 07/15/12 Hx laparoscopic cholecystectomy (Inactive) Onset Date: 10/17/08 History of total abdominal hysterectomy and bilateral salpingo-oophorectomy (Inactive) Onset Date: 03/2006 H/O tooth extraction (Inactive) Onset Date: 07/2009 H/O thyroidectomy (Inactive) Onset Date: 2009 History of angioplasty History of back surgery Onset Date: ~08/2019 [facility] Family History: Family History (Last Reviewed 03/08/20 @ 09:11 by Cira Jonas CMA) Brother Heart disease Hypertension Father Myocardial infarction Cancer Mother Cryoglobulinemia Social History: (Last Reviewed 03/08/20 @ 09:11 by Cira Jonas CMA) Social History: adopted: No foster care: No group home: No Marital status: lives independently: Yes household members: spouse, children number of children: 2 caregiver/support person: No current occupational status: retired Highest education level completed: high school graduate Service: No Tobacco: Smoking Status: Former smoker tobacco type: cigarettes Alcohol: alcohol intake: former Substance Use: substance use type: does not use Dietary Habits: caffeine: Yes Type: coffee Exercise: frequency: does not exercise Review Of Systems (GEN) - Review of Systems Generalized/Overall Review: Present: Weakness. Absent: Chills, Fever, Diaphoresis EENTM: Present: Other - runny nose Respiratory: Present: Cough, Shortness of Breath, Wheezing. Absent: Orthopnea Cardiac: Absent: Chest Pain, Edema, Palpitations, Syncope Abdominal: Absent: Nausea, Vomiting, Abdominal Pain Genitourinary: Absent: No Symptoms Reported Musculoskeletal: Present: No Symptoms Reported Neurological: Present: No Symptoms Reported Skin: Present: No Symptoms Reported Endocrine: Present: No Symptoms Reported Immunizations: IMMUNIZATION HX Immunizations Up to Date Yes History of Influenza Vaccine Yes Hx Pneumococcal Vaccination No Allergies/Adverse Reactions: Allergies Allergy/AdvReac Type Severity Reaction Status Date / Time ciprofloxacin HCl AdvReac Mild Nausea Verified 03/08/20 09:11 [From Cipro] codeine AdvReac Mild GI PAIN Verified 03/08/20 09:11 Home Medications: HOME MEDICATIONS Benazepril HCl [Lotensin] 20 mg PO BID 07/11/15 [Last Taken 08/04/17 06:45] Carvedilol [Coreg] 6.25 mg PO BID 07/27/17 [Last Taken 10/25/18] prochlorperazine maleate 10 mg tablet 10 mg PO Q6H PRN #30 tab MDD do not exceed 40mg/24hrs 05/18/18 [Last Taken 10/25/18] aspirin 81 mg tablet,delayed release 81 mg PO DAILY 07/06/18 [Last Taken 10/26/18] Atorvastatin Calcium [Lipitor] 20 mg PO DAILY 10/26/18 [Last Taken Unknown] amitriptyline 25 mg tablet 25 mg PO HS #90 tab 08/01/19 [Last Taken Unknown] Orphenadrine Citrate [Norflex] 100 mg PO Q12H PRN #12 tablet.sa 12/06/19 [Last Taken Unknown] esomeprazole magnesium 40 mg capsule,delayed release 40 mg PO DAILY PRN #90 cap 01/11/20 [Last Taken Unknown] lorazepam 1 mg tablet 1 mg PO TID PRN #90 tab 01/25/20 [Last Taken Unknown] phenazopyridine 200 mg tablet 200 mg PO Q8H PRN #30 tab 02/20/20 [Last Taken Unknown] cefdinir 300 mg capsule 300 mg PO BID #14 cap 02/24/20 [Last Taken Unknown] benzonatate 100 mg capsule 100 mg PO TID PRN #30 cap 03/01/20 [Last Taken Unknown] albuterol sulfate 2.5 mg IH BID #180 ml 03/05/20 [Last Taken Unknown] Exam - Exam Constitutional: Present: Alert, Oriented x3, Cooperative, Mild distress ENT Exam: Present: hearing grossly normal Eye Exam: bilateral eye: normal inspection, PERRL, EOMI Neck: Present: non-tender, full range of motion, supple, normal inspection Respiratory: Present: chest non-tender, respiratory distress, wheezing, expiration (prolonged) Cardiovascular/Chest: Present: normal peripheral pulses, regular rate, rhythm, no chest tenderness, no edema, no gallop, no JVD, no murmur Peripheral Pulses: dorsalis-pedis (R): 2+, dorsalis-pedis (L): 2+ Abdomen: Present: Normal bowel sounds, soft, nontender Extremity: Present: normal range of motion, non-tender, normal inspection, no pedal edema, no calf tenderness, normal capillary refill Skin Exam: Present: normal color, warm/dry Lymphatic: Present: no adenopathy Neurologic: Present: alert, normal mood/affect, oriented x 3 Appearance: Present: appropriate appearance Eye contact: Present: cooperative, good eye contact Thoughts: Present: normal thought pattern Assessment/Plan - Narrative Narrative: Assessment/Plan 74 year old F admitted for acute respiratory failure with hypoxemia / COVID -19 rule out. Suspected COVID-19 virus infection * COVID - 19 results pending * Droplet and airborne precautions Acute respiratory failure with hypoxemia * Treating as COPD due to smoking history * Solumedrol 125 mg IV X 1 * Prednisone 40 mg PO QD x 5 days, starting tomorrow AM * Azithromycin 500 mg PO QD, Day #1 * Ventolin HFA 2 Puffs Q6H * Advair 2 puff BID * Oxygen > 94-96 % whilst awake and > 88% whilst sleeping * ABG, EKG, Cardiac Panel pending Leukocytosis * Continue to trend Normocytic anemia * Slow decline * Can be evaluated outpatient FEN: HH and Low Salt Diet DVT PPx: Enoxaprin CODE STATUS: TBD Disposition: - Anticipate discharge in AM - If unable to wean off oxygen will send patient home on oxygen - Discharge with isolation recommendation and patient will be contacted when results become available. - Assessment/Plan (1) Suspected COVID-19 virus infection Problem: Suspected (2) Acute respiratory failure with hypoxemia Problem: Acute (3) Leukocytosis Problem: Acute Qualifiers: Leukocytosis type: eosinophilia Qualified Code(s): D72.1 - Eosinophilia (4) Normocytic anemia Problem: Acute
[2020-03-08 12:23] LABS: BNP * 323 pg/mL (5-550); CK Total * 29 U/L (0-259); CKMB 0.5 ng/mL (0.0-9.0); Troponin I Less than 0.017 ng/mL (0.00-0.10)
[2020-03-08] MEDS: PANTOPRAZOLE SODIUM 40 MG TABLET.EC PO SCH (14:07)
[2020-03-08] MEDS: AZITHROMYCIN 250 MG TABLET PO SCH (14:07)
[2020-03-08] MEDS: CARVEDILOL 6.25 MG TABLET PO SCH (17:43)
[2020-03-08] MEDS: LORazepam 1 MG TABLET PO SCH (20:35)
[2020-03-08] MEDS: FLUTICASONE PROPION/SALMETEROL 14 PUFF DISK.W.DEV IH SCH (20:36)
[2020-03-08] MEDS: ENALAPRIL MALEATE 20 MG TABLET PO SCH (20:36)
--- NOTE | 2020-03-09 06:29 | DS ---
(1) Suspected COVID-19 virus infection Problem: Suspected (2) Acute respiratory failure with hypoxemia Problem: Acute (3) Leukocytosis Problem: Acute Qualifiers: Leukocytosis type: eosinophilia Qualified Code(s): D72.1 - Eosinophilia (4) Normocytic anemia Problem: Acute Date of Discharge:: 03/09/20 Hospital Course: 74 year old F with past medical history of smoking for greater than 20 years, CAD (history of [place]), Cardiomyopathy,, Hypothyroidism, Hyperlipidemia, Essential Hypertension, GERD, Diverticulosis, presents to the respiratory clinic this morning with complaints dry rough cough, runny nose and shortness of breath progressively getting worse for almost 2 weeks. Contacted PCP: Dr. Coker and prescribed tessalon perles for cough with minimal relief. Patient states she has old breathing treatments at home that she has been using frequently with minimal relief. Denies any recent travel or contact with known +ve COVID-19 patient. Denies previous diagnosis of COPD. Admitted for acute respiratory failure with hypoxemia. Monitored overnight and received breathing treatments, Solumedrol 125 mg IV, and started on azithromycin and patient improved significantly. Procedures Performed: none Care Plan Goals: ISOLATION FOR 14 DAYS FOR COVID-19 RULE OUT Plan of Treatment: Azithromycin 500 mg PO QAM X 4 days Prednisone 40 mg PO QD X 4 days Results and Findings: Lab Pending Results 03/08/20 10:03: Creatine Kinase 29, CK-MB (CK-2) 0.5, CK-MB (CK-2) Rel Index 1.7, Troponin I Less than 0.017, B-Natriuretic Peptide 323 03/08/20 12:35: pCO2 35.4, pO2 64.5 L, HCO3 22.3, Total CO2 23.4, Base Excess - 1.8, ABG pH 7.42, ABG O2 Sat (Measured) 93.1 L Discharge Location: Home Disposition: Home self-care Condition: Stable Discharge Activity: Activity as tolerated Discharge Diet: Low salt Referrals: Conchis Ckoer MD [Primary Care Provider] - Prescriptions (Any new or edited meds): predniSONE [Prednisone] 40 mg PO DAILY #8 tab Transmission Status: Pending to [facility] Azithromycin [Zithromax] 500 mg PO DAILY #8 tab Transmission Status: Pending to [facility] Complete Home Medications List: Complete Home Medication List: Carvedilol [Coreg] 6.25 mg PO 0900,1700 07/27/17 aspirin 81 mg tablet,delayed release 81 mg PO DAILY 07/06/18 Atorvastatin Calcium [Lipitor] 20 mg PO HS 10/26/18 amitriptyline 25 mg tablet 25 mg PO HS #90 tab 08/01/19 phenazopyridine 200 mg tablet 200 mg PO Q8H PRN #30 tab 02/20/20 benzonatate 100 mg capsule 100 mg PO TID PRN #30 cap 03/01/20 albuterol sulfate 2.5 mg IH BID #180 ml 03/05/20 Benazepril HCl 20 mg PO BID 03/08/20 Esomeprazole Magnesium 40 mg PO DAILY 03/08/20 LORazepam [Ativan] 1 mg PO 0800,1300,199903/08/20 Albuterol Sulfate [Ventolin HFA] 2 puff INHALATION Q6H inhaler 03/09/20 Azithromycin [Zithromax] 500 mg PO DAILY #8 tab 03/09/20 predniSONE [Prednisone] 40 mg PO DAILY #8 tab 03/09/20
[2020-03-09] MEDS: PANTOPRAZOLE SODIUM 40 MG TABLET.EC PO SCH (07:38)
[2020-03-09] MEDS: LORazepam 1 MG TABLET PO SCH (07:38)
[2020-03-09] MEDS: AZITHROMYCIN 250 MG TABLET PO SCH (10:22)
[2020-03-09] MEDS: FLUTICASONE PROPION/SALMETEROL 14 PUFF DISK.W.DEV IH SCH (10:23)
[2020-03-09] MEDS: ENALAPRIL MALEATE 20 MG TABLET PO SCH (10:25)
[2020-03-09] MEDS: CARVEDILOL 6.25 MG TABLET PO SCH (10:26)
[~2020-03-09 12:40] MED LIST changes: +ALBUTEROL SULFATE 200 PUFF INHALER IH SCH; +AMITRIPTYLINE HCL 25 MG TABLET PO SCH; +ASPIRIN 81 MG TABLET.DR PO SCH; +BENZONATATE 100 MG CAPSULE PO PRN; +CARVEDILOL 6.25 MG TABLET PO SCH; +ENOXAPARIN SODIUM 40 MG/0.4 ML SYRG SC SCH; +ESOMEPRAZOLE MAGNESIUM 40 MG PO PRN; +LORazepam 1 MG TABLET PO PRN; +METHYLPREDNISOLONE SOD SUCC/PF 125 MG/2 ML VIAL IV SCH; +ORPHENADRINE CITRATE 100 MG TABLET.SA PO PRN; +PROCHLORPERAZINE MALEATE 10 MG TABLET PO PRN; -RINGER'S SOLUTION,LACTATED 1,000 ML IV PRN; +ROSUVASTATIN CALCIUM 10 MG TABLET PO SCH; +guaiFENesin 100 MG/5 ML SYRUP PO PRN; +predniSONE 20 MG TABLET PO SCH
[2020-03-09 13:30] VITALS: BP 133/65
--- NOTE | 2020-03-09 22:44 | PN ---
Progess Note - Interim Date: 03/09/20 Time: 11:30 Narrative: 03/09/20 22:42 Nyla was seen by me and discharge reviewed. She is doing well and ok for home discharge as set up by Dr. Ward.
== END | disposition home or self-care (01) ==
LOC: MS
PROVIDERS: ADMIT Family Medicine; ATTEND Family Medicine
CPT/HCPCS: 36415; 36600; 71020; 71046; 80053; 82550; 82553; 82803; 83519; 83880; 84484; 85025; 86140; 87081; 87804; 87880; 93005; 94640; 96374; G0378